=== PATIENT | male | born 1980 | race African-American/Black ===

== ENCOUNTER 2020-05-26 12:41 | Emergency (ER) | payer OTHER, SELFPAY ==
[2020-05-26 12:59] VITALS: BP 130/90; PULSE 49; RESP 18; TEMP 36.6; O2SAT 100; BMI 24.3
--- NOTE | 2020-05-26 13:04 | ECG_ITS ---
Test Reason : CHEST PAIN Blood Pressure : / mmHG Vent. Rate : 049 BPM Atrial Rate : 049 BPM P-R Int : 172 ms QRS Dur : 104 ms QT Int : 492 ms P-R-T Axes : 057 -48 -61 degrees QTc Int : 444 ms Sinus bradycardia Left axis deviation Septal infarct , age undetermined ST & T wave abnormality, consider inferolateral ischemia Abnormal ECG No previous ECGs available Referred By: Juanito Gil Electronically Signed By:REINALDO KHAN MD
--- NOTE | 2020-05-26 13:15 | ED.GENADULT ---
HPI - General Adult General Chief complaint: General Medical Stated complaint: CHEST PAIN Time Seen by Provider: 05/26/20 13:15 Source: patient Mode of arrival: ambulatory Limitations: no limitations History of Present Illness HPI narrative: patient has been feeling uncomfortable in his chest and he thought it was due to drinking. Patient describes diaphoresis. No history of alcohol withdrawal. The pain comes and goes. Neither parents have heart problems Onset (ago): minute(s) Location: chest Radiation: non-radiation Severity: severe Quality: crushing Pain Consistency: now resolved Relieving factors: none Associated symptoms: chest pain, diaphoresis and shortness of breath Related Data Allergies Allergy/AdvReac Type Severity Reaction Status Date / Time No Known Allergies Allergy Verified 05/26/20 12:58 Review of Systems Constitutional: Constitutional: Reports no additional constitutional complaints Eyes: Eyes: Reports no additional eye complaints ENT: Denies dizziness Cardiovascular: Cardiovascular: Reports no additional cardiovascular complaints Respiratory: Respiratory: Reports as per HPI Gastrointestinal: Gastrointestinal: Reports no additional gastrointestinal complaints Musculoskeletal: Musculoskeletal: Reports no additional musculoskeletal complaints Integumentary/Breasts: Skin/Breast: Denies rash Neurologic: Reports system reviewed and no additional complaints, except as documented, Denies dizziness and Denies Sensory deficit (Neuro) Psychiatric: Psychiatric: Denies anxiety PMFSH Past Medical History Medical History (Updated 05/26/20 @ 14:50 by Juanito Gil MD) Patient denies medical problems Social History Social History Alcohol intake: current Alcohol intake frequency: 3 or more drinks per day Smoking Status: Current every day smoker Smoked in Last 30 Days: Yes Use of substances other than those prescribed or required for medical reasons: No Advance Directives: No Advance Directives Information Provided: No Physical Exam Vital Signs: Vital Signs: Last Vital Signs Temp 97.9 F 05/26/20 12:59 Pulse 63 05/26/20 13:34 Resp 18 05/26/20 12:59 BP 127/88 05/26/20 13:34 Pulse Ox 100 05/26/20 12:59 Body Mass Index 24.3 Const: General: healthy appearing Nutritional Appearance: average body habitus Orientation/consciousness: oriented to person and patient oriented x3 Limitations: no limitations HENMT: Head: Yes normal to inspection Ears: external ears normal General nose exam: Normal external nose present Mouth: Normal oral and palatal mucosa present and oropharynx normal Throat: Yes posterior oropharynx normal Eyes: General: appearance normal, both eyes and all related structures Neck: Other: supple Neck: Yes normal visual inspection Chest: Chest palpation & inspection: normal inspection of the chest Resp: Auscultation: clear to auscultation bilaterally Cardio: Jugular venous distension: no JVD Rate: regular rate Rhythm: regular rhythm Heart sounds: S1 normal heart sound present and S2 normal heart sound present GI: Inspection: Yes normal to inspection Palpation (GI): Soft to palpation, nontender and No hepatosplenomegaly present Auscultation: normal bowel sounds : General: Yes no CVA tenderness Back/Spine/Pelvis: Back: no CVA tenderness Skin: General skin exam: no rashes or lesions noted Neuro: General: oriented to person and patient oriented x3 Cranial nerves: Yes CN's II-XII intact bilaterally Motor exam (neuro): 5/5 motor strength present throughout Sensory Exam: No Sensory deficit (Neuro) Extrem: General: Yes normal to inspection Psych: Appearance: grossly normal Course Course Course Narrative: Initial EKG was without pain. Now with pain and sinus with inferior st elevation II, III, AVF Medical Decision Making MDM Narrative Medical decision making narrative: now with STEMI, going to [facility] Lab Data Result diagrams: 05/26/20 13:24 05/26/20 13:24 Labs: Lab Results 05/26/20 05/26/20 05/26/20 Range/Units 13:24 13:24 13:24 WBC 6.9 (4.8-10.8) X10*3/uL RBC 5.02 (4.60-5.80) X10*6/uL Hgb 14.7 (14.0-18.0) g/dl Hct 45.6 (42-52) % MCV 90.8 (80-98) fL MCH 29.3 (27.0-33.0) pg MCHC 32.2 (31.0-36.0) g/dl RDW 14.2 (11.0-16.0) % Plt Count 236 (160-400) X10*3/uL MPV 10.3 (9.4-12.4) fL Immature Gran % (Auto) 0.6 H (0.0-0.4) % Neut % (Auto) 61.9 (45-73) % Lymph % (Auto) 21.2 (20-40) % Tompkins % (Auto) 14.1 H (2-11) % Eos % (Auto) 1.5 (0-4) % Baso % (Auto) 0.7 (0-2) % Lymph # (Auto) 1.5 (1.2-4.9) X10*3/uL Tompkins # (Auto) 1.0 (0.1-1.2) X10*3/uL Eos # (Auto) 0.1 (0.0-0.4) X10*3/uL Baso # (Auto) 0.1 (0.0-0.2) X10*3/uL Abs Immat Gran (auto) 0.04 H (0.00-0.03) X10*3/uL Absolute Neuts (auto) 4.3 (2.0-8.3) X10*3/uL Absolute Nucleated RBC 0.000 (0.0-0.012) X10*3/uL Nucleated RBC % (auto) 0.0 (0.0-0.2) /100WBC Smear Tech's Comments VERIFIED Hold Blue Top Sodium 138 (135-145) mmol/L Potassium 4.0 (3.3-5.1) mmol/L Chloride 103 (96-108) mmol/L Carbon Dioxide 23 (22-29) mmol/L Anion Gap 16 (12-20) BUN 13 (9-16) mg/dL Creatinine 1.05 (0.5-1.4) mg/dL Estim Creat Clear Calc 109.5 Estimated GFR > 60 Random Glucose 133 H (60-115) mg/dL Calcium 9.3 (8.4-10.2) mg/dL Troponin I High Sens 84.9 H (<3.5-35.0) ng/L 05/26/20 Range/Units 13:24 WBC (4.8-10.8) X10*3/uL RBC (4.60-5.80) X10*6/uL Hgb (14.0-18.0) g/dl Hct (42-52) % MCV (80-98) fL MCH (27.0-33.0) pg MCHC (31.0-36.0) g/dl RDW (11.0-16.0) % Plt Count (160-400) X10*3/uL MPV (9.4-12.4) fL Immature Gran % (Auto) (0.0-0.4) % Neut % (Auto) (45-73) % Lymph % (Auto) (20-40) % Tompkins % (Auto) (2-11) % Eos % (Auto) (0-4) % Baso % (Auto) (0-2) % Lymph # (Auto) (1.2-4.9) X10*3/uL Tompkins # (Auto) (0.1-1.2) X10*3/uL Eos # (Auto) (0.0-0.4) X10*3/uL Baso # (Auto) (0.0-0.2) X10*3/uL Abs Immat Gran (auto) (0.00-0.03) X10*3/uL Absolute Neuts (auto) (2.0-8.3) X10*3/uL Absolute Nucleated RBC (0.0-0.012) X10*3/uL Nucleated RBC % (auto) (0.0-0.2) /100WBC Smear Tech's Comments Hold Blue Top SEE NOTE Sodium (135-145) mmol/L Potassium (3.3-5.1) mmol/L Chloride (96-108) mmol/L Carbon Dioxide (22-29) mmol/L Anion Gap (12-20) BUN (9-16) mg/dL Creatinine (0.5-1.4) mg/dL Estim Creat Clear Calc Estimated GFR Random Glucose (60-115) mg/dL Calcium (8.4-10.2) mg/dL Troponin I High Sens (<3.5-35.0) ng/L ECG Data Attestation: I personally reviewed and interpreted this ECG as follows: Interpretation: initial EKG sinus rate 50 with flippe ts II, III and AVF Critical Care Time Critical Care Time Attestation: I spent 40 minutes of critical care, with interventions, assessments, speaking to patient, consultants, and family. 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
--- NOTE | 2020-05-26 13:20 | ECG_ITS ---
Test Reason : CP Blood Pressure : / mmHG Vent. Rate : 053 BPM Atrial Rate : 053 BPM P-R Int : 172 ms QRS Dur : 104 ms QT Int : 432 ms P-R-T Axes : 054 018 099 degrees QTc Int : 405 ms Sinus bradycardia Septal infarct , age undetermined Inferior injury pattern ACUTE AK / STEMI Consider right ventricular involvement in acute inferior infarct Abnormal ECG No previous ECGs available Referred By: Juanito Gil Electronically Signed By:REINALDO KHAN MD
[2020-05-26] MEDS: Aspirin Enteric Coated 81 MG TABLET.DR 162 MG PO (13:33)
[2020-05-26 13:34] VITALS: BP 127/88; PULSE 63
[2020-05-26] MEDS: Nitroglycerin 2 % Oint 1 GM Packet 1 INCH TRANSDERMA (13:34)
[2020-05-26 13:41] LABS: Basophils Absolute Auto 0.1 X10*3/uL (0.0-0.2); Basophils Percent Auto 0.7 % (0-2); Hemoglobin 14.7 g/dl (14.0-18.0); MANUAL DIFF FLAG SCAN; Mean Corpuscular Hemoglobin 29.3 pg (27.0-33.0); PLT CLUMP 1; Red Blood Count 5.02 X10*6/uL (4.60-5.80); SCAN SMEAR FLAG 1
[2020-05-26 13:43] LABS: Eosinophils Absolute Auto 0.1 X10*3/uL (0.0-0.4); Eosinophils Percent Auto 1.5 % (0-4); Hematocrit 45.6 % (42-52); Imm Gran Abs Auto 0.04 X10*3/uL (0.00-0.03); Imm Gran Pct Auto 0.6 % (0.0-0.4); Lymphocytes Absolute Auto 1.5 X10*3/uL (1.2-4.9); Lymphocytes Percent Auto 21.2 % (20-40); Mean Corpuscular HGB Conc 32.2 g/dl (31.0-36.0); Mean Corpuscular Volume 90.8 fL (80-98); Mean Platelet Volume 10.3 fL (9.4-12.4); Monocytes Percent Auto 14.1 % (2-11); Neutrophils Absolute Auto 4.3 X10*3/uL (2.0-8.3); Neutrophils Percent Auto 61.9 % (45-73); Platelet Count 236 X10*3/uL (160-400); Red Cell Distribution Width 14.2 % (11.0-16.0); White Blood Count 6.9 X10*3/uL (4.8-10.8)
[2020-05-26 14:13] LABS: SLIDE REVIEW VERIFIED
[2020-05-26 14:21] LABS: Anion Gap 16 (12-20); Blood Urea Nitrogen 13 mg/dL (9-16); Calcium 9.3 mg/dL (8.4-10.2); Carbon Dioxide 23 mmol/L (22-29); Chloride 103 mmol/L (96-108); Creatinine Clr Calc Pharmacy 109.5; Estimated Glomerular Filt Rate > 60; Glucose Random 133 mg/dL (60-115); Sodium 138 mmol/L (135-145)
[2020-05-26 14:33] LABS: Troponin-I High Sensitivity 84.9 ng/L (<3.5-35.0)
[2020-05-26 14:35] VITALS: BP 135/103; PULSE 60; RESP 18; O2SAT 98
--- NOTE | 2020-05-26 14:38 | PC.NURSE ---
@[id number] DR IBARRA REQUESTS A CALL TO [facility] AND STEMI STAND BY WITH [facility] STAT PAGER [phone] HATCH @ [phone], DR IBARRA TAKES OVER CALL RIGHT AWAY JAMIR FROM [facility] @ 1514 [facility] ALS CREW HERE WELL
[2020-05-26] MEDS: Ticagrelor 90 MG TABLET 180 MG PO (14:40)
[2020-05-26] MEDS: Heparin Sodium,Porcine 5,000 UNIT/ML VIAL 5000 UNIT IVPUSH (14:41)
--- NOTE | 2020-05-26 14:47 | PC.NURSE ---
pt reported chest pain, ekg completed noting a STEMI, md to bedside. pt medicated per md order and additional iv placed. ems arrived to bring pt to [facility].
--- NOTE | 2020-05-26 14:50 | PC.NURSE ---
report given to jeremiah at [facility], [place]
--- NOTE | 2020-05-26 15:11 | PC.NURSE ---
report given to [facility] processing labourer and [facility]cc at [facility]
== END 2020-05-26 14:50 | disposition short-term general hospital (02) ==
PROVIDERS: Emergency Provider Emergency Medicine; PCP Internal Medicine
DX: I21.11 ST elevation (STEMI) myocardial infarction involving right coronary artery (principal); F17.200 Nicotine dependence, unspecified, uncomplicated; Z71.6 Tobacco abuse counseling; Z79.899 Other long term (current) drug therapy
CPT/HCPCS: 36415; 80048; 84484; 85025; 93005; 96374; 99285; 99291

== ENCOUNTER → 2020-07-02 10:50 | Outpatient (BNVA) | payer OTHER, SELFPAY | PROVIDERS: PCP Internal Medicine; Visit Provider Internal Medicine | DX: I21.19 ST elevation (STEMI) myocardial infarction involving other coronary artery of inferior wall (principal); I25.10 Atherosclerotic heart disease of native coronary artery without angina pectoris; E78.5 Hyperlipidemia, unspecified; F17.200 Nicotine dependence, unspecified, uncomplicated; F10.10 Alcohol abuse, uncomplicated | CPT/HCPCS: 93005 ==

== ENCOUNTER → 2020-07-14 07:46 | Outpatient (REF) | payer OTHER, SELFPAY ==
--- NOTE | ~2020-07-14 | NM_ITS ---
Exercise Myocardial perfusion study Indication: Prior STEMI evaluate for myocardial ischemia Technique: The patient was brought in for an exercise perfusion study on 07/14/2020. Patient performed exercise as per Favio protocol and was injected 30 mCi of sestamibi was given intravenously one target HR was achieved. Images were obtained using the SPECT gamma camera interlaced with the gating device. Images were obtained in supine position. Resting perfusion study was performed on 07/15/2020. Patient was administered 30 mCi of sestamibi intravenously at rest. Images were then obtained in supine position. Images obtained with and without CT attenuation. Total DLP 41 mGy-cm. Images were processed with the software and compared side to side in short axis, horizontal long axis and vertical long axis views. Findings: The stress perfusion study showed nontender images show mildly reduced uptake in the inferior wall of the LV myocardium. Attenuation corrected images show mildly reduced uptake in the distal anterior and moderately reduced uptake in the apex of the LV myocardium.. The gated study shows normal LV systolic function with calculated LVEF of 53%. LV cavity is normal in in size. The gated study shows normal systolic wall thickening and contraction of all segments. There is no transient ischemic dilation. Resting study shows no change in perfusion pattern compared to stress perfusion study. Gating at rest reveals normal cyst colic wall motion with ejection fraction at 52%. The findings are consistent with no reversible defect suggestive of ischemia.. NM/NM lorie perf SPECT rest & str Impression: 1. Likely normal myocardial perfusion 2. Gated LVEF is 53% 3. Transient ischemic dilatation not present Stress EKG is equivocal for ischemia
--- NOTE | 2020-07-14 08:00 | CA_ITS ---
Acquisition Time: 2020-07-14 08:10:07 Total Exercise Time: 00:09:30 Test Indications: Chest Pain Medications: ASA ATORVASTATIN LISINOPRIL METOPROLOL TICAGRELOR Protocol: CALLIE Max HR: 160 BPM 89% of Pred: 178 BPM Max BP: 156/070 mmHG Max Work Load: 10.9 METS Exercise stress test using Callie protocol, total of 9 min 30 sec. METS 10.90, TAPHR up to 93 %. Pt tolerated well, denies any anginal sx., EKG with isolated PAC's mild upsloping ST depressions seen inferiorly and anteriorly. Nuclear images to follow. Normotensive response to exercise. Test reviewed with Dr. Nicholson. Referred By: Man Joy Overread By: Lexus Easley NP
== END ==
LOC: HO.CARD 07:46
PROVIDERS: Visit Provider Internal Medicine
DX: I21.19 ST elevation (STEMI) myocardial infarction involving other coronary artery of inferior wall (principal)
CPT/HCPCS: 78452; 93016; 93017; 93018; A9500

== ENCOUNTER → 2020-07-21 07:21 | Outpatient (REF) | payer OTHER, SELFPAY ==
--- NOTE | 2020-07-21 07:34 | CA_ITS ---
Transthoracic Echocardiogram Patient (Last, First, Middle): Marina Gibson, Gender: Male Date of : 1980 Age: 40 Procedure Date: 07/21/2020 Procedure Type: Transthoracic Echocardiogram Location: OP Height: 190.5 cm Weight: 90.72 kg BSA: 2.19 m2 Heart Rate: bpm BP: 102 / 64 mmHg Manager Fine: Joe MD: Man Joy MD Symptoms: I21.19 - ST elevation (STEMI) myocardial infarction invol... Study Quality: Good ECG Rhythm: Sinus Conclusions: - The left ventricular systolic function is low normal. The visually estimated ejection fraction is between 50-55%. - There is mild mitral valve regurgitation. Findings Left Ventricle Normal left ventricular cavity size. There is normal left ventricular wall thickness. The left ventricular systolic function is low normal. The visually estimated ejection fraction is between 50-55%. There is no evidence of regional wall motion abnormalities. Diastolic function is normal for age. Right Ventricle Normal right ventricular cavity size and systolic function. Atria The left atrium is normal in size. The right atrium is normal in size. Aortic Valve There is a normal trileaflet aortic valve. There is no aortic valve stenosis. There is no aortic valve regurgitation. Mitral Valve The mitral valve appears normal. There is mild mitral valve regurgitation. There is no mitral valve stenosis. Pulmonic Valve The pulmonic valve was not well visualized. There is trace pulmonic valve regurgitation. Tricuspid Valve Normal tricuspid valve structure. There is trace tricuspid valve regurgitation. The pulmonary artery systolic pressure is normal. Great Vessels The asc aorta is normal in size. Venous The inferior vena cava is normal in size and collapses greater than 50% with inspiration. Pericardium/Pleural There is no evidence of pericardial effusion. Prior Study Comparison No prior study available for comparison. Measurements 2D Linear Measurements RVIDd: 3.20 RVIDd Index: 1.46 IVSd: 1.03 0.6-0.9/0.6-1.0 cm LVIDd: 5.62 3.9-5.3/4.2-5.9 cm LVIDd Index: 2.57 2.4-3.2/2.2-3.1 cm/m2 LVIDs: 4.13 2.0-3.6 cm LVPWd: 0.99 0.7-1.1 cm Ao Root: 3.00 2.1-3.5 cm LA Diam: 3.80 2.7-3.8/3.0-4.0 cm LAIDs Index: 1.74 1.5-2.3 cm/m2 LV Mass: 279.91 67-162/88-224 g LV Mass Index: 127.81 43-95/49-115 g/m2 LVOT Diam: 2.50 3.0+(-)1.3 cm 2D Systolic Function EF 4C: 50.20 >55% EF 2C: 67.30 >55% EF BiP: 59.20 >55% Mitral Valve MV Pk E: 0.62 MV PK A: 0.59 MV Decel Time: 185.00 E/A: 1.00 E'Lateral: 11.50 E'Medial: 9.86 E/E' Med: 6.20 E/E' Lat: 5.40 MR Vol - PW Dopp: 8.35 MR VTI: 1.67 MR ERO: 5.00 MR Alias Gael: 0.23 MR RAD: 0.40 Aortic Valve AoV Pk Gael: 1.52 AoV Mn Gael: 1.14 AoV VTI: 0.34 AoV Pk Grad: 9.00 Aov Mn Grad: 6.00 JESSICA Cont.VTI: 2.90 LVOT LVOT Pk Gael: 0.92 LVOT Mn Gael: 0.62 LVOT VTI: 0.20 LVOT Pk Grad: 3.00 LVOT Mn Grad: 2.00 LVOT Diam: 2.50 LVOT Area: 4.91 Diastolic Function MV Pk E: 0.62 MV Pk A: 0.59 E/A: 1.00 E'Medial: 9.86 E/E' Med: 6.20 E' Laterial: 11.50 E/E' Lat: 5.40 Tricuspid Valve TR Pk Gael: 2.39 TR Pk Grad: 23.00 RA Press: 3.00 RVSP: 26.00 Great Vessels Aorta Ao Root-2D: 3.00 2.0-3.7 cm Ao Asc: 3.50 2.1-3.4 cm Ao Arch: 3.30 Updated in Other Vendor System with Status of Final Man Joy MD electronically signed on 07/22/2020 12:28:34 PM with status of Final
[2020-07-21 09:05] LABS: Alanine Aminotransferase 101 U/L (0-40); Albumin Level 4.4 g/dL (3.5-5.0); Alkaline Phosphatase 113 U/L (39-117); Aspartate Amino Transferase 56 U/L (5-37); Bilirubin Direct 0.4 mg/dL (0.0-0.5); Bilirubin Total 1.1 mg/dL (0.0-1.0); Cholesterol 160 mg/dL; HDL Cholesterol 36 mg/dL; LDL Cholesterol Calculated 106 mg/dl; Total Protein 7.4 g/dL (6.5-8.0); Triglycerides 93 mg/dL
== END ==
LOC: HO.CARD 07:21
PROVIDERS: PCP Internal Medicine; Visit Provider Internal Medicine
DX: I21.19 ST elevation (STEMI) myocardial infarction involving other coronary artery of inferior wall (principal)
CPT/HCPCS: 36415; 80061; 80076; 93306

== ENCOUNTER → 2020-07-28 08:18 | Outpatient (BNVA) | payer OTHER, SELFPAY | PROVIDERS: PCP Internal Medicine; Visit Provider Internal Medicine ==

== ENCOUNTER 2020-10-28 11:52 | Outpatient (REF) | payer OTHER, SELFPAY ==
[2020-10-28 13:54] LABS: Alanine Aminotransferase 54 U/L (0-40); Albumin Level 4.6 g/dL (3.5-5.0); Alkaline Phosphatase 123 U/L (39-117); Aspartate Amino Transferase 29 U/L (5-37); Bilirubin Direct 0.4 mg/dL (0.0-0.5); Total Protein 7.6 g/dL (6.5-8.0)
== END 2020-10-28 11:53 | disposition home or self-care (01) ==
LOC: HO.LAB 11:52
PROVIDERS: PCP Internal Medicine; Visit Provider Internal Medicine
DX: R94.5 Abnormal results of liver function studies (principal)
CPT/HCPCS: 36415; 80076

== ENCOUNTER 2021-06-02 14:52 | Outpatient (REF) | payer OTHER, SELFPAY ==
--- NOTE | ~2021-06-02 | XR_ITS ---
EXAMINATION: XR ANKLE, LEFT CLINICAL INFORMATION: Pain COMPARISON: None TECHNIQUE: AP, lateral, and mortise views of the left ankle. FINDINGS: Bone alignment is normal. No acute fracture or dislocation is seen. There is a small well-corticated soft tissue ossification adjacent to the anterior talus, question representing old trauma. There is proliferative bone reaction adjacent to the distal tibial and fibular shaft likely representing old trauma to the interosseous membrane. There is arthritis at the tibiotalar joint with small osteophytes. No ankle joint effusion is seen. XR/XR ankle LT min 3V IMPRESSION: No acute fracture or dislocation. Question old trauma. Mild arthritis at the tibiotalar joint.
== END 2021-06-02 14:53 | disposition home or self-care (01) ==
LOC: HO.HMGCX 14:52
PROVIDERS: PCP Internal Medicine; Visit Provider Physician Assistant
DX: M25.572 Pain in left ankle and joints of left foot (principal)
CPT/HCPCS: 73610

== ENCOUNTER → 2021-08-04 10:31 | Outpatient (BNVA) | payer OTHER, SELFPAY | PROVIDERS: PCP Internal Medicine; Visit Provider Physician Assistant | DX: M19.072 Primary osteoarthritis, left ankle and foot (principal) ==

== ENCOUNTER 2021-08-27 15:40 | Outpatient (REF) | payer OTHER, SELFPAY ==
--- NOTE | ~2021-08-27 | MR_ITS ---
EXAMINATION: MR ANKLE WITHOUT CONTRAST, LEFT CLINICAL INFORMATION: Left ankle pain and swelling. Anterior pain and swelling. COMPARISON: Left ankle radiographs dated 06/02/2021. TECHNIQUE: Multisequence MR imaging of the left ankle was obtained without contrast on a high-field strength scanner. FINDINGS: BONE AND ARTICULAR CARTILAGE: Osteochondral lesion at the lateral aspect of the talar dome measuring 1.4 x 0.7 cm (AP x ML) with a depth of 0.5 cm. Full-thickness overlying articular cartilage loss with underlying subchondral cystic change and marrow edema. Articular cartilage loss with full-thickness fissuring at the anterior and posterior aspect of the tibial plafond where there is mild subchondral cystic change. Small marginal osteophytes. Small marginal osteophytes at the talonavicular joint. Corticated ossification along the dorsal aspect of the talus without associated marrow edema which may represent an unfused osteophyte versus remote fracture fragment. ACHILLES TENDON: Mild distal Achilles tendinosis. OTHER TENDONS: Fluid within the flexor digitorum, flexor hallucis longus, peroneal longus, and peroneal brevis tendon sheaths, consistent with tenosynovitis. No transverse tendon tear or tendon retraction. LIGAMENTS: Thickening and increased T2 signal throughout the anterior talofibular, posterior talofibular, calcaneofibular, and deltoid ligaments, consistent with moderate sprains/partial tears. Small corticated ossifications adjacent to the medial malleolus likely representing remote avulsion injuries. JOINT FLUID AND SOFT TISSUES: [id number] tibiotalar joint effusion with synovitis. Posterior loose body measuring 0.5 cm. PLANTAR FASCIA: Mild thickening and abnormal signal of the proximal plantar fascia consistent with mild plantar fasciitis. No measurable tear. SINUS TARSI AND TARSAL TUNNEL: Normal. MR/MR ankle LT wo con IMPRESSION: 1. Lateral talar osteochondral lesion measuring 1.4 x 0.7 cm with overlying articular cartilage loss and underlying subchondral cystic change. No evidence of fragmentation or instability. Overall mild tibiotalar osteoarthritis. [id number] joint effusion with synovitis and a posterior loose body measuring 0.5 cm. 2. Mild distal Achilles tendinosis. 3. Flexor digitorum longus, flexor hallucis longus, peroneal longus, and peroneal brevis tenosynovitis without a transverse tendon tear or tendon retraction. 4. Moderate sprains/partial tears of the anterior talofibular, posterior talofibular, calcaneofibular, and deltoid ligaments. 5. Mild proximal plantar fasciitis. No measurable tear.
== END 2021-08-27 15:41 | disposition home or self-care (01) ==
LOC: HO.MRI 15:40
PROVIDERS: Visit Provider Physician Assistant
DX: M19.072 Primary osteoarthritis, left ankle and foot (principal); S93.402A Sprain of unspecified ligament of left ankle, initial encounter; X58.XXXA Exposure to other specified factors, initial encounter; Y93.9 Activity, unspecified; Y92.9 Unspecified place or not applicable; Y99.8 Other external cause status
CPT/HCPCS: 73721

== ENCOUNTER → 2021-12-09 10:19 | Outpatient (BNVA) | payer OTHER, SELFPAY | PROVIDERS: PCP Internal Medicine; Visit Provider Internal Medicine | DX: Z01.810 Encounter for preprocedural cardiovascular examination (principal); I25.10 Atherosclerotic heart disease of native coronary artery without angina pectoris; E78.5 Hyperlipidemia, unspecified; F10.10 Alcohol abuse, uncomplicated; R94.5 Abnormal results of liver function studies; F17.200 Nicotine dependence, unspecified, uncomplicated | CPT/HCPCS: 93005 ==

== ENCOUNTER 2022-03-10 11:37 | Outpatient (REF) | payer SELFPAY ==
[2022-03-10 14:28] LABS: Alanine Aminotransferase 41 U/L (0-40); Albumin Level 4.7 g/dL (3.5-5.0); Alkaline Phosphatase 83 U/L (39-117); Aspartate Amino Transferase 30 U/L (5-37); Bilirubin Direct 0.3 mg/dL (0.0-0.5); Bilirubin Total 0.8 mg/dL (0.0-1.0); Cholesterol 223 mg/dL; HDL Cholesterol 51 mg/dL; LDL Cholesterol Calculated 145 mg/dl; Total Protein 7.6 g/dL (6.5-8.0); Triglycerides 138 mg/dL
[2022-03-11 07:14] LABS: HBS Num1 0.53 mIU/mL (0-7.99); ~Hepatitis B Surface Antibody NONREACTIVE (Nonreactive)
[2022-03-12 08:38] LABS: TS Negative Control Passed; TS Panel A 1; TS Panel B 0; TS Positive Control Passed; TSpotTB Negative (Negative)
[2022-03-15 14:14] LABS: Rubella IgG Antibody 1.94 Index
== END 2022-03-10 11:38 | disposition home or self-care (01) ==
LOC: HO.HMGCLDS 11:37
PROVIDERS: Internal Medicine; PCP Internal Medicine; Visit Provider Emergency Medicine
DX: Z01.84 Encounter for antibody response examination (principal); I25.10 Atherosclerotic heart disease of native coronary artery without angina pectoris; E78.5 Hyperlipidemia, unspecified
CPT/HCPCS: 36415; 80061; 80076; 86481; 86706; 86735; 86762; 86765; 86787

== ENCOUNTER 2022-04-21 08:57 | Outpatient (REF) | payer SELFPAY ==
[2022-04-21 12:02] LABS: Troponin-I High Sensitivity < 3.5 ng/L (<3.5-35.0)
[2022-04-21 14:24] LABS: CT PCR NOT DETECTED (Not Detect.); NG PCR NOT DETECTED (Not Detect.)
[2022-04-22 07:22] LABS: HIV AB/AG Nonreactive (Nonreactive); HIV Num 1 0.07 S/CO (0.00-0.99); ~HepC Num1 0.11 S/CO (0.00-0.79); ~Hepatitis B Surface Antibody NONREACTIVE (Nonreactive); ~Hepatitis C Antibody Nonreactive (Nonreactive)
[2022-04-23 01:24] LABS: Herpes Simplex Type 1 IgG <0.90 index
== END 2022-04-21 08:58 | disposition home or self-care (01) ==
LOC: HO.HMGCLDS 08:57
PROVIDERS: PCP Internal Medicine; Visit Provider Internal Medicine
DX: R21 Rash and other nonspecific skin eruption (principal); Z20.2 Contact with and (suspected) exposure to infections with a predominantly sexual mode of transmission
CPT/HCPCS: 0353U; 36415; 84484; 86695; 86696; 86706; 86803; 87389

== ENCOUNTER 2022-12-07 08:43 | Outpatient (AMB) | payer OTHER, SELFPAY ==
[2022-12-07 08:46] VITALS: BP 110/78; PULSE 54; O2SAT 99
--- NOTE | 2022-12-07 08:46 | A.OFFPC_ITS ---
Vital Signs 12/07/22 08:46 Weight 202 lb 4 oz BP 110/78 Blood Pressure Location Rt brachial Position Sitting Pulse 54 Pulse Source Pulse Oximeter Pulse Oximetry (%) 99 Oxygen Delivery Method Room Air Intake Visit Reasons: Discuss Referral to remove a Cyst Allergies No Known Allergies Allergy (Verified 12/07/22 08:47) Medication List - Last Reconciled 12/07/22 by Ben Simon MD atorvastatin 80 mg PO BEDTIME folic acid 1 mg PO DAILY 90 days lisinopril 5 mg PO DAILY 90 days metoprolol succinate ER 25 mg PO DAILY multivitamin (Daily Multi-Vitamin tablet) 1 tab PO DAILY 90 days nitroglycerin 0.4 mg sublingual Q5M PRN 30 days valacyclovir 1,000 mg PO BID PRN 7 days Tobacco use date assessed: 12/07/22 Dental Screening Dental Screen Date: 12/07/22 Did you have a dental visit in the last 12 months?: Yes Did you have a dental problem in the last 6 months where you did not have access to dental care?: No Was dental information given to patient?: Patient has dentist HPI Discuss Referral to remove a Cyst HPI Details Patient is a 42-year-old gentleman came in today to be evaluated for skin cyst Patient wanted to a referral for them to be removed. On examination it seems as if he is getting recurrent boils. Mostly on his face chain area where he is shaving And currently have 1 active healing while on his abdomen right side close to umbilicus. Upon further question questions, patient told me that he is also shaving his body. I would recommend for him to stop shaving that is causing irritation to his skin and most likely putting him at risk of recurrent boils I have sent doxycycline 100 mg capsules patient may take that as soon as he start getting the boil for 7 days. And see the rest for next recurrence. He should also have labs done today. Patient have a history of coronary artery disease, and should be following up with the asbestos abatement technician. He is on high-dose statin as well. No chest pains no shortness of breath Patient she should return in 6 months for physical exam [facility] Medical History Immunity status testing Excessive drinking alcohol Smoking Other and unspecified hyperlipidemia (~03/2020) Atherosclerotic cardiovascular disease ST elevation myocardial infarction (STEMI) of inferior wall Patient denies medical problems Surgical History History of removal of cyst History of heart artery stent (~05/2020) Family History Father Heart disease Mother Cancer Other Substance use disorder Social History Housing: Apartment Alcohol intake: current Alcohol intake frequency: a few times a month Alcohol type: beer Patient Tobacco Use Status: Current everyday Tobacco user Tobacco use type: Cigarette e-Cigarette/Vaping Use: Never Used Substance Use Type: Marijuana Current occupational status: employed 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 1. Little interest or pleasure in doing things: not at all 2. Feeling down, depressed, or hopeless: not at all 3. Trouble falling or staying asleep, or sleeping too much: not at all 4. Feeling tired or having little energy: not at all 5. Poor appetite or overeating: not at all 6. Feeling bad about yourself - or that you are a failure or have let yourself or your family down: not at all 7. Trouble concentrating on things, such as reading the newspaper or watching television: not at all 8. Moving or speaking so slowly that other people could have noticed. Or the opposite - being so fidgety or restless that you have been moving around a lot more than usual: not at all 9. Thoughts that you would be better off or of hurting yourself in some way: not at all Total score: 0 Depression Screening Interpretation: Negative 83220 - PHQ-9 Billing: Yes Source: Developed by Drs. Valentino Holcomb, Sharon Hurley, Evan Koenig and colleagues, with an educational olayinka from [employer]. Thrive Questionnaire Date Thrive assessed: 12/07/22 I am a: Patient What is your living situation today?: I have a steady place to live Within the past 12 months, did the food you bought not last and you didn't have the money to get more?: Never true Within the past 12 months, did you worry whether your food would run out before you got money to buy more?: Never true Do you have trouble paying for medicines?: No Do you have trouble getting transportation to medical appointments?: No Do you have trouble paying your heating and electricity bill?: No Do you have trouble taking care of your child, family member or friend?: No Do you have trouble with day-to-day activities such as bathing, preparing meals, shopping, managing finances, etc.?: No Are you currently unemployed and looking for a job?: No Are you interested in more education?: No AUDIT C Alcohol Use Questionnaire (AUDIT-C) 1. How often do you have a drink containing alcohol?: 2-3 times a week 2. How many drinks containing alcohol do you have on a typical day when you are drinking?: 1 or 2 3. How often do you have six or more drinks on one occasion?: Never Total Score: 3 Score Reviewed/Action Taken: Yes ANAID-7 AMB Questionnaire ANAID-7 Date ANAID - 7 assessed: 12/07/22 Feeling nervous, anxious, or on edge: 0 = Not at all Not being able to stop or control worryin = Not at all Worrying too much about different things: 0 = Not at all Trouble relaxin = Not at all Being so restless that it is hard to sit still: 0 = Not at all Becoming easily annoyed or irritable: 0 = Not at all Feeling afraid as if something awful might happen: 0 = Not at all Total ANAID-7 score (0-4 normal; 5-9 mild; 10-14 moderate; 15-21 severe): 0 Source: Developed by Drs. Valentino Holcomb, Sharon Hurley, Evan Koenig and colleagues, with an educational olayinka from [employer]. ANAID-7 Assessment Billing ANAID-7 Assessment Tool: ANAID-7 Assessment 28102 Review of Systems Const Denies chills and Denies fever(s) ENT Denies epistaxis and Denies nasal discharge Card Denies chest pain Resp Denies chest congestion, Denies cough and Denies hemoptysis GI Denies diarrhea and Denies nausea Skin/Breast Denies rash Neuro Reports no additional complaints Psych Reports no additional complaints Endo Reports no additional complaints Physical exam (Primary Care) Vital Signs: Last Vital Signs Pulse 54 12/07/22 08:46 BP 110/78 12/07/22 08:46 Pulse Ox 99 12/07/22 08:46 Oxygen Delivery Method Room Air 12/07/22 08:46 Tobacco/Smoking Status: Tobacco use Status Tobacco use date assessed 12/07/22 12/07/22 08:48 Patient Tobacco Use Status Current everyday Tobacco 12/07/22 08:48 Tobacco use type Cigarette 12/07/22 08:48 e-Cigarette/Vaping Use Never Used 12/07/22 08:48 PHQ-9: PHQ-9 Score PHQ-9: Total score 0 12/07/22 09:53 Depression Screening Interpretation: Negative Thrive Assessment: Date of Thrive Assessment Date Thrive assessed 12/07/22 12/07/22 08:59 Const General: cooperative, comfortable and no acute distress Orientation/consciousness: patient oriented x3 HENMT Head: Yes normocephalic Eyes General: appearance normal, both eyes and all related structures Neck Neck: Yes supple Resp Effort & Inspection: normal respiratory effort, no cough and no stridor Cardio Rhythm: regular rhythm Heart sounds: S1 normal heart sound present and S2 normal heart sound present Skin Other: Excessive scarring right side of chain due to recurrent boils, 1 healing while right side of abdomen close to me like us no drainage General skin exam: turgor normal Neuro General: patient oriented x3, tone normal and moves all extremities Extrem Right lower extremity: no edema Left lower extremity: no edema Assessment and Plan Assessment & Plan (1) Recurrent boils: Code(s): L02.93 - Carbuncle, unspecified (2) Atherosclerotic cardiovascular disease: Code(s): I25.10 - Atherosclerotic heart disease of [place] coronary artery without angina pectoris (3) Lipid disorder: Code(s): E78.9 - Disorder of lipoprotein metabolism, unspecified Plan Patient is a 42-year-old gentleman came in today to be evaluated for skin cyst Patient wanted to a referral for them to be removed. On examination it seems as if he is getting recurrent boils. Mostly on his face chain area where he is shaving And currently have 1 active healing while on his abdomen right side close to umbilicus. Upon further question questions, patient told me that he is also shaving his body. I would recommend for him to stop shaving that is causing irritation to his skin and most likely putting him at risk of recurrent boils I have sent doxycycline 100 mg capsules patient may take that as soon as he start getting the boil for 7 days. And see the rest for next recurrence. He should also have labs done today. Patient have a history of coronary artery disease, and should be following up with the asbestos abatement technician. He is on high-dose statin as well. No chest pains no shortness of breath Patient she should return in 6 months for physical exam Orders: Orders Comprehensive Met. Panel Today E78.9 - Disorder of lipoprotein metabolism, unspecified, I25.10 - Atherosclerotic heart disease of [place] coronary artery without angina pectoris, L02.93 - Carbuncle, unspecified LDL Cholesterol Direct Today E78.9 - Disorder of lipoprotein metabolism, unspecified, I25.10 - Atherosclerotic heart disease of [place] coronary artery without angina pectoris, L02.93 - Carbuncle, unspecified Complete Blood Count Auto Diff Today E78.9 - Disorder of lipoprotein metabolism, unspecified, I25.10 - Atherosclerotic heart disease of [place] coronary artery without angina pectoris, L02.93 - Carbuncle, unspecified TSH reflex Free T4 Today E78.9 - Disorder of lipoprotein metabolism, unspecified, I25.10 - Atherosclerotic heart disease of [place] coronary artery without angina pectoris, L02.93 - Carbuncle, unspecified Medications: New doxycycline hyclate 100 mg PO BID 30 tabs 0RF Coding Level of Care Code Est Pt Level 4 (95918) Diagnoses Recurrent boils L02.93 Atherosclerotic cardiovascular disease I25.10 Lipid disorder E78.9 Additional Codes ANAID-7 Assessment Billing - ANAID-7 Assessment Tool: ANAID-7 Assessment 87447 ([id number]) Time Spent (min) 30 Comment 5 prep, 15 with patient, 10 coordination of care/labs
== END 2022-12-07 09:03 | disposition home or self-care (01) ==
PROVIDERS: PCP Internal Medicine; Visit Provider Internal Medicine
DX: L02.93 Carbuncle, unspecified (principal); I25.10 Atherosclerotic heart disease of native coronary artery without angina pectoris; E78.9 Disorder of lipoprotein metabolism, unspecified; F17.210 Nicotine dependence, cigarettes, uncomplicated; Z95.5 Presence of coronary angioplasty implant and graft
CPT/HCPCS: 99214

== ENCOUNTER 2022-12-07 09:01 | Outpatient (REF) | payer OTHER, SELFPAY ==
[2022-12-07 11:07] LABS: MANUAL DIFF FLAG NO
[2022-12-07 11:34] LABS: Basophils Percent Auto 0.6 % (0-2); Eosinophils Absolute Auto 0.2 X10*3/uL (0.0-0.4); Eosinophils Percent Auto 3.2 % (0-4); Hematocrit 42.2 % (42.0-52.0); Hemoglobin 13.2 g/dl (14.0-18.0); Imm Gran Abs Auto 0.02 X10*3/uL (0.00-0.03); Imm Gran Pct Auto 0.4 % (0.0-0.4); Lymphocytes Absolute Auto 1.5 X10*3/uL (1.2-4.9); Lymphocytes Percent Auto 32.5 % (20-40); Mean Corpuscular HGB Conc 31.3 g/dl (31.0-36.0); Mean Corpuscular Hemoglobin 28.4 pg (27.0-33.0); Mean Corpuscular Volume 90.9 fL (80.0-98.0); Mean Platelet Volume 11.1 fL (9.4-12.4); Monocytes Absolute Auto 0.6 X10*3/uL (0.1-1.2); Monocytes Percent Auto 12.7 % (2-11); Neutrophils Absolute Auto 2.4 x10*3/uL (2.0-8.3); Neutrophils Percent Auto 50.6 % (45-73); Platelet Count 199 X10*3/uL (160-400); Red Blood Count 4.64 X10*6/uL (4.60-5.80); Red Cell Distribution Width 14.6 % (11.0-16.0); White Blood Count 4.7 X10*3/uL (4.8-10.8)
[2022-12-07 12:18] LABS: Alanine Aminotransferase 29 U/L (0-40); Albumin Level 4.7 g/dL (3.5-5.0); Alkaline Phosphatase 96 U/L (39-117); Anion Gap 12 (12-20); Aspartate Amino Transferase 31 U/L (5-37); Bilirubin Total 1.5 mg/dL (0.0-1.0); Blood Urea Nitrogen 10 mg/dL (9-16); Calcium 9.5 mg/dL (8.4-10.2); Carbon Dioxide 28 mmol/L (22-29); Chloride 103 mmol/L (96-108); Estimated Glomerular Filt Rate > 60; Glucose Random 135 mg/dL (60-115); Potassium 3.1 mmol/L (3.3-5.1); Sodium 140 mmol/L (135-145); Total Protein 7.9 g/dL (6.5-8.0)
[2022-12-07 12:19] LABS: TSH reflex Free T4 1.11 uIU/mL (0.32-4.0)
[2022-12-08 16:19] LABS: LDL Cholesterol Direct 81 mg/dL (<100)
== END 2022-12-07 09:02 | disposition home or self-care (01) ==
LOC: HO.HMGCLDS 09:01
PROVIDERS: PCP Internal Medicine; Visit Provider Internal Medicine
DX: L02.93 Carbuncle, unspecified (principal); I25.10 Atherosclerotic heart disease of native coronary artery without angina pectoris; E78.9 Disorder of lipoprotein metabolism, unspecified
CPT/HCPCS: 36415; 80053; 83721; 84443; 85025

== ENCOUNTER 2022-12-08 10:08 | Outpatient (AMB) | payer OTHER, SELFPAY ==
--- NOTE | 2022-12-08 10:12 | MHC.OFFVIS ---
Intake Vital Signs 12/08/22 10:15 Height 6 ft 2 in Weight 204 lb 9.423 oz BMI 26.3 BP 110/78 Blood Pressure Location Lt brachial Position Sitting Pulse 69 Intake Visit Reasons: 1 year follow up Intake Note: 1 year follow up w/ EKG Collection Systems Worker Required: No Accompanied by: Self / Same As Patient Allergies No Known Allergies Allergy (Verified 12/08/22 10:15) Medication List - Last Reconciled 12/08/22 by Man Joy MD atorvastatin 80 mg PO BEDTIME doxycycline hyclate 100 mg PO BID lisinopril 5 mg PO DAILY 90 days metoprolol succinate ER 25 mg PO DAILY multivitamin (Daily Multi-Vitamin tablet) 1 tab PO DAILY 90 days nitroglycerin 0.4 mg sublingual Q5M PRN 30 days valacyclovir 1,000 mg PO BID PRN HPI HPI Comments History of Present Illness Details Marina returns for follow-up regarding coronary disease. To recall, in 2020 he had inferior STEMI. Underwent right coronary artery stenting. He also had disease in other areas but not intervened upon. Prior to this, history of smoking, excessive alcohol use and high lipids. Overall, he is feeling good. No new symptoms. Smoking has been cut back. He states that he is taking all his meds without any issues. Otherwise, fairly active and exercises without any issues. [facility] Medical History Immunity status testing Excessive drinking alcohol Smoking Other and unspecified hyperlipidemia (~03/2020) Atherosclerotic cardiovascular disease ST elevation myocardial infarction (STEMI) of inferior wall Patient denies medical problems Surgical History History of removal of cyst History of heart artery stent (~05/2020) Family History Father Heart disease Mother Cancer Other Substance use disorder Social History Housing: Apartment Alcohol intake: current Alcohol intake frequency: a few times a month Alcohol type: beer Patient Tobacco Use Status: Current everyday Tobacco user Tobacco use type: Cigarette e-Cigarette/Vaping Use: Never Used Substance Use Type: Marijuana Current occupational status: employed 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 Cognitive needs: No Hearing needs: No Vision needs: No Review of Systems Const Denies weakness ENT Denies dizziness Card Denies chest pain, Denies chest pain with activity, Denies syncope, Denies rapid heart rate, Denies pedal edema, Denies edema, Denies leg edema, Denies lightheadedness, Denies palpitations, Denies dyspnea, Denies dyspnea on exertion and Denies orthopnea Resp Denies cough, Denies dyspnea and Denies dyspnea on exertion GI Denies hematochezia and Denies change in stool character Musc Denies abnormal gait, Denies muscle cramps, Denies muscle weakness, Denies numbness, Denies radiating pain into limb and Denies tingling Neuro Denies abnormal gait, Denies dizziness, Denies syncope, Denies numbness, Denies tingling and Denies weakness Endo Denies palpitations Physical Exam Vital Signs: Last Vital Signs Pulse 69 12/08/22 10:15 BP 110/78 12/08/22 10:15 BMI result Body Mass Index 26.3 Const General: comfortable and no acute distress Orientation/consciousness: patient oriented x3 HEENT Other: Unremarkable Head: Yes normal to inspection Neck Neck: Yes normal visual inspection Chest Chest palpation & inspection: normal inspection of the chest Resp Auscultation: clear to auscultation bilaterally Cardio Palpation: normal PMI Heart sounds: S1 normal heart sound present, S2 normal heart sound present, no gallops, no murmurs and no rubs GI Palpation (GI): Soft to palpation Back/Spine/Pelvis Other: unremarkable Skin General skin exam: no rashes or lesions noted Neuro General: patient oriented x3 Extrem General: Yes normal to inspection Psych Mental Status: mental status grossly normal Office Procedures EKG Details: EKG with sinus rhythm at 69/Min; leftward axis; no significant ST-T changes and otherwise unremarkable[place] [id number], Complete Assessment & Plan Assessment & Plan (1) Atherosclerotic cardiovascular disease: Code(s): I25.10 - Atherosclerotic heart disease of [place] coronary artery without angina pectoris Plan: Status post DEREJE to RCA. He also has disease in LAD and circumflex. During the exercise stress test, he was able to exercise for 9 minutes and 30 seconds on Favio protocol reaching 10.9 METS. No anginal-type symptoms or clear ischemic changes on the EKG. The perfusion component was also unremarkable. For some reason, has not been taking aspirin. Advised to restart. (2) Other and unspecified hyperlipidemia: Onset Date: ~03/2020 Code(s): E78.5 - Hyperlipidemia, unspecified Plan: LDL was 230 mg/dL. With statins, this has improved to 101 mg per dL. There is other direct LDL pending today. We can review that. Possibly add Zetia after that. (3) Smoking: Code(s): F17.200 - Nicotine dependence, unspecified, uncomplicated Plan: He has cut back a lot but needs to stop completely. (4) Excessive drinking alcohol: Code(s): F10.10 - Alcohol abuse, uncomplicated Plan: Again, has cut back. Medications: New aspirin (Adult Aspirin Regimen) 81 mg PO DAILY 90 tabs 3RF Changed From valacyclovir 1,000 mg PO BID 7 days PRN 14 tabs 0RF rash To valacyclovir 1,000 mg PO BID PRN Coding Level of Care Code Est Pt Level 4 (31722) Diagnoses Atherosclerotic cardiovascular disease I25.10 Other and unspecified hyperlipidemia E78.5 Smoking F17.200 Excessive drinking alcohol F10.10 CPT Codes EKG - CPT: 01175-[id number], Complete ([id number])
[2022-12-08 10:15] VITALS: BP 110/78; PULSE 69; BMI 26.3
== END 2022-12-08 10:32 | disposition home or self-care (01) ==
PROVIDERS: PCP Internal Medicine; Visit Provider Internal Medicine
DX: I25.10 Atherosclerotic heart disease of native coronary artery without angina pectoris (principal); E78.5 Hyperlipidemia, unspecified; F17.200 Nicotine dependence, unspecified, uncomplicated; F10.10 Alcohol abuse, uncomplicated
CPT/HCPCS: 93010; 99214

== ENCOUNTER → 2022-12-08 10:08 | Outpatient (BNVA) | payer OTHER, SELFPAY | PROVIDERS: PCP Internal Medicine; Visit Provider Internal Medicine | DX: I25.10 Atherosclerotic heart disease of native coronary artery without angina pectoris (principal); E78.5 Hyperlipidemia, unspecified; F10.10 Alcohol abuse, uncomplicated; F17.210 Nicotine dependence, cigarettes, uncomplicated | CPT/HCPCS: 93005; 99212 ==

== ENCOUNTER 2023-06-05 10:00 | Outpatient (AMB) | payer OTHER, SELFPAY ==
[2023-06-05 12:02] VITALS: BP 122/80; PULSE 74; TEMP 36.9; O2SAT 97; BMI 26.1
--- NOTE | 2023-06-05 12:02 | MHC.OFFWIV ---
Intake Vital Signs 06/05/23 12:02 Height 6 ft 2 in Weight 203 lb 8 oz BMI 26.1 BP 122/80 Blood Pressure Location Lt brachial Position Sitting Pulse 74 Pulse Source Pulse Oximeter Temp 98.4 F Temp Source Oral Pulse Oximetry (%) 97 Oxygen Delivery Method Room Air Intake Visit Reasons: EP ?Strep Throat Intake Note: Pt presents to the office today for ? strep throat. Pt states he started a sore throat on Monday and states it is so sore that he is having trouble swalling. Patient Tobacco Use Status: Never used Tobacco Allergies No Known Allergies Allergy (Verified 06/05/23 13:06) Medication List - Last Reconciled 06/05/23 by Homer Maurice MD aspirin (Adult Aspirin Regimen) 81 mg PO DAILY atorvastatin 80 mg PO BEDTIME lisinopril 5 mg PO DAILY metoprolol succinate ER 25 mg PO DAILY multivitamin (Daily Multi-Vitamin tablet) 1 tab PO DAILY 90 days nitroglycerin 0.4 mg sublingual Q5M PRN 30 days valacyclovir 1,000 mg PO BID PRN HPI EP ?Strep Throat HPI Details Patient presents for a sick visit. Reporting symptoms of sinus congestion, sore throat and difficulty swallowing. Low-grade fever. No family member is sick. No recent travel. Patient reports symptoms of malaise and fatigue. [facility] Medical History Immunity status testing Excessive drinking alcohol Smoking Other and unspecified hyperlipidemia (~03/2020) Atherosclerotic cardiovascular disease ST elevation myocardial infarction (STEMI) of inferior wall Patient denies medical problems Surgical History History of removal of cyst History of heart artery stent (~05/2020) Family History Father Heart disease Mother Cancer Other Substance use disorder Social History (Updated 06/05/23 @ 12:06 by Alka Trinh MA) Housing: Apartment Alcohol intake: current Alcohol intake frequency: a few times a month Alcohol type: beer Patient Tobacco Use Status: Never used Tobacco Tobacco use type: Cigarette e-Cigarette/Vaping Use: Never Used Substance Use Type: Marijuana Current occupational status: employed 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 Cognitive needs: No Hearing needs: No Vision needs: No Physical Exam Vital Signs: Last Vital Signs Temp 98.4 F 06/05/23 12:02 Pulse 74 06/05/23 12:02 BP 122/80 06/05/23 12:02 Pulse Ox 97 06/05/23 12:02 Oxygen Delivery Method Room Air 06/05/23 12:02 BMI result Body Mass Index 26.1 Const General: cooperative and healthy appearing Nutritional Appearance: well nourished Orientation/consciousness: patient oriented x3 Limitations: no limitations HEENT Head: Yes normal to inspection Eyes General: appearance normal, both eyes and all related structures Neck Neck: Yes normal visual inspection Chest Chest palpation & inspection: normal palpation of entire chest wall Resp Effort & Inspection: normal respiratory effort Neuro General: patient oriented x3 Results AMB Rapid Strep AMB Rapid Strep Negative Last Edit by Alka Trinh MA on 06/05/23 12:15 Results Reviewed Results Reviewed: Laboratory Last Values Strep Scn Rapid Clinic Negative 06/05/23 12:10 Assessment & Plan Assessment & Plan (1) Upper respiratory tract infection: Code(s): J06.9 - Acute upper respiratory infection, unspecified Plan: Antibiotics ordered. Increase fluid intake. Tylenol for aches and pains. If symptoms worsen, follow-up here for a recheck. Orders: Orders AMB Rapid Strep Screen Today Z13.9 - Encounter for screening, unspecified Coding Level of Care Code Est Pt Level 3 (63314) Diagnoses Upper respiratory tract infection J06.9
== END 2023-06-05 14:56 | disposition home or self-care (01) ==
PROVIDERS: PCP Internal Medicine; Visit Provider Internal Medicine
DX: Z13.9 Encounter for screening, unspecified (principal); J06.9 Acute upper respiratory infection, unspecified
CPT/HCPCS: 87880; 99213

== ENCOUNTER 2023-06-08 10:06 | Outpatient (AMB) | payer OTHER, SELFPAY ==
[2023-06-08 11:02] VITALS: BP 120/90; PULSE 73; TEMP 36.9; O2SAT 96; BMI 25.3
--- NOTE | 2023-06-08 11:02 | MHC.OFFWIV ---
Intake Vital Signs 06/08/23 11:02 Height 6 ft 2 in Weight 197 lb BMI 25.3 BP 120/90 H Blood Pressure Location Lt brachial Position Sitting Pulse 73 Pulse Source Pulse Oximeter Temp 98.4 F Temp Source Temporal Artery Scan Pulse Oximetry (%) 96 Oxygen Delivery Method Room Air Intake Visit Reasons: Sore throat worsened [phone] Intake Note: pt is here today for sore throat started monday Patient Tobacco Use Status: Never used Tobacco Allergies No Known Allergies Allergy (Verified 06/08/23 11:04) Do you need a note to return to daycare/school/sports/work: Yes HPI HPI Comments History of Present Illness Details 43 y/o male patient who presents to walk in clinic with c/o Sore throat since Monday. Pt was seen at walk in clinic 06/04 for similar symptoms. He was prescribed Z-Pack. Pt reports not feeling better and believes infection is getting worse. Pt asking for Amoxicillin. Advised Pt Z-Pack did not work, it could mean the etiology is Viral vs Bacterial. Both Rapid Strap in office negative. Denies fevers but reports chills. [facility] Medical History Immunity status testing Excessive drinking alcohol Smoking Other and unspecified hyperlipidemia (~03/2020) Atherosclerotic cardiovascular disease ST elevation myocardial infarction (STEMI) of inferior wall Patient denies medical problems Surgical History History of removal of cyst History of heart artery stent (~05/2020) Family History Father Heart disease Mother Cancer Other Substance use disorder Social History (Updated 06/05/23 @ 12:06 by Alka Trinh MA) Housing: Apartment Alcohol intake: current Alcohol intake frequency: a few times a month Alcohol type: beer Patient Tobacco Use Status: Never used Tobacco Tobacco use type: Cigarette e-Cigarette/Vaping Use: Never Used Substance Use Type: Marijuana Current occupational status: employed 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 [employer] Cognitive needs: No Hearing needs: No Vision needs: No Review of Systems Const All systems reviewed & are unremarkable except as noted in HPI and below Physical Exam Vital Signs: Last Vital Signs Temp 98.4 F 06/08/23 11:02 Pulse 73 06/08/23 11:02 BP 120/90 H 06/08/23 11:02 Pulse Ox 96 06/08/23 11:02 Oxygen Delivery Method Room Air 06/08/23 11:02 BMI result Body Mass Index 25.3 Const General: comfortable and no acute distress Orientation/consciousness: patient oriented x3 HEENT Head: Yes normocephalic Ears: external ears normal and TM's normal bilaterally General nose exam: Normal nasal mucous membranes and turbinates present Face and sinus: Yes sinuses nontender Mouth: moist mucous membranes Throat: Yes posterior oropharynx normal Resp Effort & Inspection: normal respiratory effort and able to speak in complete sentences Auscultation: clear to auscultation bilaterally, no crackles, no rales, no rhonchi and no wheezes Cardio Rate: regular rate Rhythm: regular rhythm Neuro General: patient oriented x3 Assessment & Plan Assessment & Plan (1) Acute pharyngitis: Code(s): J02.9 - Acute pharyngitis, unspecified Qualifiers: Pharyngitis/tonsillitis etiology: unspecified etiology Qualified Code(s): J02.9 - Acute pharyngitis, unspecified Plan: - Warned Pt that if this is Viral Infection, Abx will not work - SARs today to r/o Virus - Warm fluids with Honey - OTC sore throat remedies. Orders: Orders SARS-CoV2/FLU/RSV Today J02.9 - Acute pharyngitis, unspecified Medications: New amoxicillin 250 mg PO BID 14 caps 0RF 7 days J02.9 - Acute pharyngitis, unspecified Coding Level of Care Code Est Pt Level 3 (91416) Diagnoses Acute pharyngitis, unspecified etiology J02.9 Pharyngitis/tonsillitis etiology: unspecified etiology Time Spent (min) 15
== END 2023-06-08 12:15 | disposition home or self-care (01) ==
PROVIDERS: PCP Internal Medicine; Visit Provider Nurse Practitioner Family
DX: J02.9 Acute pharyngitis, unspecified (principal)
CPT/HCPCS: 87880; 99213

== ENCOUNTER 2023-06-08 11:34 | Outpatient (REF) | payer OTHER, SELFPAY ==
[2023-06-08 14:33] LABS: Influenza A PCR NEGATIVE (Negative); Influenza B PCR NEGATIVE (Negative); Resp Syncy Virus RNA Qual PCR NEGATIVE (Negative); SARS COV2 PCR INHOUSE NEGATIVE (Negative)
== END 2023-06-08 11:35 | disposition home or self-care (01) ==
LOC: HO.LAB 11:34
PROVIDERS: Visit Provider Nurse Practitioner Family
DX: J02.9 Acute pharyngitis, unspecified (principal)
CPT/HCPCS: 0241U

== ENCOUNTER 2023-07-12 15:24 | Outpatient (AMB) | payer OTHER, SELFPAY ==
[2023-07-12 15:26] VITALS: BP 100/64; PULSE 57; O2SAT 97; BMI 25.7
--- NOTE | 2023-07-12 15:26 | MHC.PC.OV ---
Vital Signs 07/12/23 15:26 Height 6 ft 2 in Weight 200 lb BMI 25.7 BP 100/64 Blood Pressure Location Rt brachial Position Sitting Pulse 57 Pulse Source Pulse Oximeter Pulse Oximetry (%) 97 Oxygen Delivery Method Room Air Intake Visit Reasons: Annual PE Allergies No Known Allergies Allergy (Verified 07/12/23 15:26) Medication List - Last Reconciled 07/12/23 by Ben Simon MD aspirin (Adult Aspirin Regimen) 81 mg PO DAILY atorvastatin 80 mg PO BEDTIME lisinopril 5 mg PO DAILY metoprolol succinate ER 25 mg PO DAILY nitroglycerin 0.4 mg sublingual Q5M PRN 30 days Tobacco use date assessed: 07/12/23 Dental Screening Dental Screen Date: 07/12/23 Did you have a dental visit in the last 12 months?: Yes Did you have a dental problem in the last 6 months where you did not have access to dental care?: No Was dental information given to patient?: Patient has dentist HPI Annual PE HPI Details Patient is a 43-year-old gentleman came in today for physical examination Patient is having recurrent outbreak of herpes genitalia almost every month I have sent valacyclovir 500 mg that he needs to start taking every day Patient a history of coronary artery disease with stented coronary artery Seeing Cardiology [facility] once a year, has appointment coming up in November this year Labs are due order placed to be done fasting Colonoscopy referral placed as well Patient have a history of recurrent boils he is requesting a referral to Dermatology. [facility] Medical History Immunity status testing Excessive drinking alcohol Smoking Other and unspecified hyperlipidemia (~03/2020) Atherosclerotic cardiovascular disease ST elevation myocardial infarction (STEMI) of inferior wall Patient denies medical problems Surgical History History of removal of cyst History of heart artery stent (~05/2020) Family History Father Heart disease Mother Cancer Other Substance use disorder Social History Housing: Apartment Alcohol intake: current Alcohol intake frequency: a few times a month Alcohol type: beer Patient Tobacco Use Status: Never used Tobacco Tobacco use type: Cigarette e-Cigarette/Vaping Use: Never Used Substance Use Type: Marijuana service: No Current occupational status: employed 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 1. Little interest or pleasure in doing things: not at all 2. Feeling down, depressed, or hopeless: not at all 3. Trouble falling or staying asleep, or sleeping too much: not at all 4. Feeling tired or having little energy: not at all 5. Poor appetite or overeating: not at all 6. Feeling bad about yourself - or that you are a failure or have let yourself or your family down: not at all 7. Trouble concentrating on things, such as reading the newspaper or watching television: not at all 8. Moving or speaking so slowly that other people could have noticed. Or the opposite - being so fidgety or restless that you have been moving around a lot more than usual: not at all 9. Thoughts that you would be better off or of hurting yourself in some way: not at all Total score: 0 Depression Screening Interpretation: Negative Depression Screening Done: Yes 79022 - PHQ-9 Billing: Yes Source: Developed by Drs. Valentino Holcomb, Sharon Hurley, Evan Koenig and colleagues, with an educational olayinka from [employer]. Thrive Questionnaire Date Thrive assessed: 12/07/22 AUDIT C Alcohol Use Questionnaire (AUDIT-C) 1. How often do you have a drink containing alcohol?: 2-3 times a week 2. How many drinks containing alcohol do you have on a typical day when you are drinking?: 1 or 2 3. How often do you have six or more drinks on one occasion?: Never Total Score: 3 Score Reviewed/Action Taken: Yes ANAID-7 AMB Questionnaire ANAID-7 Date ANAID - 7 assessed: 12/07/22 Source: Developed by Drs. Valentino Holcomb, Evan Orantes and colleagues, with an educational olayinka from [employer]. Review of Systems Const Denies chills, Denies fever(s) and Denies headache(s) Eyes Denies blurry vision ENT Denies headache(s), Denies nasal discharge, Denies nasal obstruction, Denies odynophagia and Denies sinus pain Card Denies chest pain at rest and Denies chest pain with activity Resp Denies cough and Denies hemoptysis GI Denies diarrhea, Denies odynophagia, Denies vomiting and Denies hematemesis Reports as per HPI Musc Denies abnormal gait Skin/Breast Reports as per HPI Neuro Denies Neuro-related abnormal movements, Denies Abnormal speech present, Denies abnormal gait, Denies headache(s) and Denies Sensory deficit (Neuro) Psych Denies mood swings and Denies paranoia Endo Reports as per HPI Eduardo/Lymph Reports as per HPI Aller/Immun Reports as per HPI Physical exam (Primary Care) Vital Signs: Last Vital Signs Pulse 57 07/12/23 15:26 BP 100/64 07/12/23 15:26 Pulse Ox 97 07/12/23 15:26 Oxygen Delivery Method Room Air 07/12/23 15:26 BMI result Body Mass Index 25.7 Tobacco/Smoking Status: Tobacco use Status Tobacco use date assessed 07/12/23 07/12/23 15:27 Patient Tobacco Use Status Never used Tobacco 07/12/23 15:27 Tobacco use type Cigarette 07/12/23 15:27 e-Cigarette/Vaping Use Never Used 07/12/23 15:27 Depression Screening Interpretation: Negative Thrive Assessment: Date of Thrive Assessment Date Thrive assessed 12/07/22 07/12/23 15:27 Const General: cooperative, comfortable and no acute distress Orientation/consciousness: patient oriented x3 HENMT Head: Yes normocephalic and Yes atraumatic Eyes General: appearance normal, both eyes and all related structures Pupils: Equal, round and reactive pupils present EOM: EOMs intact bilaterally Neck Neck: Yes supple and No lymphadenopathy Thyroid: Thyroid normal Lymphatic: no lymphadenopathy noted Resp Effort & Inspection: normal respiratory effort and able to speak in complete sentences Auscultation: clear to auscultation bilaterally Cardio Heart sounds: S1 normal heart sound present and S2 normal heart sound present GI Palpation (GI): Soft to palpation and nontender Auscultation: normal bowel sounds General: Yes no CVA tenderness Back/Spine/Pelvis Back: no CVA tenderness Skin General skin exam: elasticity normal and turgor normal Neuro General: patient oriented x3 and gait normal Cranial nerves: Yes Equal, round and reactive pupils present Speech: No Abnormal speech present Sensory Exam: No Sensory deficit (Neuro) Coordination: tandem gait normal and Romberg test negative Extrem General: Yes normal exam except as noted and No edema Assessment and Plan Assessment & Plan (1) Encounter for general adult medical examination with abnormal findings: Code(s): Z00.01 - Encounter for general adult medical examination with abnormal findings (2) Lipid disorder: Code(s): E78.9 - Disorder of lipoprotein metabolism, unspecified (3) Recurrent boils: Code(s): L02.93 - Carbuncle, unspecified (4) Herpes genitalia: Code(s): A60.00 - Herpesviral infection of urogenital system, unspecified Qualifiers: Herpes simplex infection site: unspecified Qualified Code(s): A60.00 - Herpesviral infection of urogenital system, unspecified (5) Atherosclerotic cardiovascular disease: Code(s): I25.10 - Atherosclerotic heart disease of [place] coronary artery without angina pectoris (6) History of inferior wall myocardial infarction: Code(s): I25.2 - Old myocardial infarction (7) Encounter for screening colonoscopy: Code(s): Z12.11 - Encounter for screening for malignant neoplasm of colon Plan Patient is a 43-year-old gentleman came in today for physical examination Patient is having recurrent outbreak of herpes genitalia almost every month I have sent valacyclovir 500 mg that he needs to start taking every day Patient a history of coronary artery disease with stented coronary artery Seeing Cardiology [facility] once a year, has appointment coming up in November this year Labs are due order placed to be done fasting Colonoscopy referral placed as well Patient have a history of recurrent boils he is requesting a referral to Dermatology. Orders: Orders Complete Blood Count Auto Diff Today A60.00 - Herpesviral infection of urogenital system, unspecified, E78.9 - Disorder of lipoprotein metabolism, unspecified, I25.10 - Atherosclerotic heart disease of [place] coronary artery without angina pectoris, I25.2 - Old myocardial infarction, L02.93 - Carbuncle, unspecified, Z00.01 - Encounter for general adult medical examination with abnormal findings Lipid Panel Today A60.00 - Herpesviral infection of urogenital system, unspecified, E78.9 - Disorder of lipoprotein metabolism, unspecified, I25.10 - Atherosclerotic heart disease of [place] coronary artery without angina pectoris, I25.2 - Old myocardial infarction, L02.93 - Carbuncle, unspecified, Z00.01 - Encounter for general adult medical examination with abnormal findings Comprehensive [place]. Panel Fast Today A60.00 - Herpesviral infection of urogenital system, unspecified, E78.9 - Disorder of lipoprotein metabolism, unspecified, I25.10 - Atherosclerotic heart disease of [place] coronary artery without angina pectoris, I25.2 - Old myocardial infarction, L02.93 - Carbuncle, unspecified, Z00.01 - Encounter for general adult medical examination with abnormal findings Referrals Dermatology Referral L02.93 - Carbuncle, unspecified Gastroenterology Referral Z12.11 - Encounter for screening for malignant neoplasm of colon Medications: New valacyclovir 500 mg PO DAILY 90 tabs 3RF Coding Level of Care Code Est Pt Level 3 (68684) Est Pt Prev Care 40-64y(70095) Diagnoses Encounter for general adult medical examination with abnormal findings Z00.01 Lipid disorder E78.9 Recurrent boils L02.93 Genital herpes simplex, unspecified site A60.00 Herpes simplex infection site: unspecified Atherosclerotic cardiovascular disease I25.10 History of inferior wall myocardial infarction I25.2 Encounter for screening colonoscopy Z12.11
== END 2023-07-12 15:56 | disposition home or self-care (01) ==
PROVIDERS: PCP Internal Medicine; Visit Provider Internal Medicine
DX: Z00.01 Encounter for general adult medical examination with abnormal findings (principal); E78.9 Disorder of lipoprotein metabolism, unspecified; L02.93 Carbuncle, unspecified; A60.00 Herpesviral infection of urogenital system, unspecified; I25.10 Atherosclerotic heart disease of native coronary artery without angina pectoris; I25.2 Old myocardial infarction; Z12.11 Encounter for screening for malignant neoplasm of colon
CPT/HCPCS: 99213; 99396

== ENCOUNTER 2024-02-18 11:40 | Emergency (ER) | payer SELFPAY ==
[2024-02-18 11:49] VITALS: BP 133/84; PULSE 86; RESP 18; TEMP 36.6; O2SAT 98; BMI 25.0
--- NOTE | 2024-02-18 11:49 | ED_ITS ---
HPI - Skin/Abscess/Foreign Bdy General Chief complaint: Extremity Injury, Lower Stated complaint: foot irritation Time Seen by Provider: 02/18/24 11:51 Source: patient Mode of arrival: ambulatory Limitations: no limitations History of Present Illness ED Provider: Deanna Us APRN HPI narrative: 43-year-old male with a history of coronary artery disease with 1 stent, hypertension, hyperlipidemia presents the ER with complaints of left foot redness and irritation for several days. Patient reports that this began after his foot was rubbing against the top of his sneaker. He denies any fevers, chills, numbness, tingling, swelling. Related Data Previous Rx's ?Medication ?Instructions ?Recorded nitroglycerin 0.4 mg sublingual 0.4 mg sublingual Q5M PRN angina 07/14/21 tablet 30 days #60 tabs valacyclovir 500 mg tablet 500 mg PO DAILY #90 tabs 07/12/23 lisinopril 5 mg tablet 5 mg PO DAILY #90 tabs 09/27/23 metoprolol succinate 25 mg 25 mg PO DAILY #90 tabs 09/27/23 tablet,extended release 24 hr aspirin 81 mg tablet,delayed 81 mg PO DAILY #90 tabs 10/05/23 release (Adult Aspirin Regimen) atorvastatin 80 mg tablet 80 mg PO BEDTIME #90 tabs 10/05/23 cephalexin 500 mg capsule 500 mg PO TID #21 caps 02/18/24 mupirocin 2 % topical ointment 1 appl topical DAILY #50 grams 02/18/24 Allergies Allergy/AdvReac Type Severity Reaction Status Date / Time No Known Allergies Allergy Verified 02/18/24 11:51 Review of Systems 2 Review of Systems: Yes all other systems are reviewed and are negative Constitutional: Constitutional: Reports no additional constitutional complaints, Denies body ache(s), Denies chills, Denies fever(s), Denies headache(s) and Denies weakness Eyes: Eyes: Reports no additional eye complaints and Denies change in vision ENT: Reports system reviewed and no additional complaints, except as documented, Denies dizziness, Denies headache(s), Denies nasal congestion, Denies nasal discharge and Denies neck pain Cardiovascular: Cardiovascular: Reports no additional cardiovascular complaints, Denies chest pain, Denies leg edema and Denies dyspnea Respiratory: Respiratory: Reports no additional respiratory complaints, Denies cough and Denies dyspnea Gastrointestinal: Gastrointestinal: Reports no additional gastrointestinal complaints, Denies abdominal pain, Denies diarrhea, Denies nausea and Denies vomiting Genitourinary: Genitourinary: Denies urinary incontinence Musculoskeletal: Musculoskeletal: Reports no additional musculoskeletal complaints, Denies back pain, Denies arthralgias, Denies joint swelling, Denies neck pain, Denies numbness and Denies tingling Integumentary/Breasts: Skin/Breast: Reports system reviewed and no additional complaints, except as docu, Denies rash and Reports wounds Neurologic: Reports system reviewed and no additional complaints, except as documented, Denies Abnormal speech present, Denies dizziness, Denies headache(s), Denies numbness, Denies tingling and Denies weakness PMFSH Past Medical History Attestation statement: The following information was validated with the patient. Source: old records reviewed and nursing notes reviewed Medical History Immunity status testing Excessive drinking alcohol Smoking Other and unspecified hyperlipidemia (~03/2020) Atherosclerotic cardiovascular disease ST elevation myocardial infarction (STEMI) of inferior wall Patient denies medical problems Surgical History History of removal of cyst History of heart artery stent (~05/2020) Family History Family History Father Heart disease Mother Cancer Other Substance use disorder Social History Social History Housing: Apartment Alcohol intake: current Alcohol intake frequency: a few times a month Alcohol type: beer Patient Tobacco Use Status: Never used Tobacco Tobacco use type: Cigarette e-Cigarette/Vaping Use: Never Used Substance Use Type: Marijuana Do you have a plan to hurt others: No Plan service: No Current occupational status: employed 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 Cognitive needs: No Hearing needs: No Vision needs: No Physical Exam 2 Vital Signs: Vital Signs: Last Vital Signs Temp 98 F 02/18/24 11:49 Pulse 86 02/18/24 11:49 Resp 18 02/18/24 11:49 BP 133/84 02/18/24 11:49 Pulse Ox 98 02/18/24 11:49 BMI result Body Mass Index 25.0 Const: General: cooperative, healthy appearing, comfortable and no acute distress Orientation/consciousness: patient oriented x3 Limitations: no limitations HEENT: Head: Yes normal to inspection Ears: hearing grossly normal bilaterally General nose exam: Normal external nose present Face and sinus: Yes normal facial exam Mouth: Normal oral and palatal mucosa present Throat: Yes posterior oropharynx normal Eyes: General: appearance normal, both eyes and all related structures P upils: Equal, round and reactive pupils present Neck: Neck: Yes normal visual inspection Chest: Chest palpation & inspection: normal inspection of the chest Resp: Effort & Inspection: normal respiratory effort Auscultation: clear to auscultation bilaterally Cardio: Rate: regular rate Rhythm: regular rhythm Peripheral pulses: P eripheral pulses 2+ throughout GI: Inspection: Yes normal to inspection Palpation (GI): Soft to palpation and nontender Auscultation: normal bowel sounds Back/Spine/Pelvis: Thoracic/Lumbar Spine: thoracic and lumbar spine normal to inspection Skin: General skin exam: no rashes or lesions noted Neuro: General: patient oriented x3, no focal motor deficits and normal sensation to monofilament Cranial nerves: Yes Equal, round and reactive pupils present Cognition (Neuro): normal cognition Speech: No Abnormal speech present Gait exam (Neuro): Normal gait present Motor exam (neuro): 5/5 motor strength present throughout Extrem: Other: Full range of motion. Surrounding skin is pink warm and dry. Normal distal pulses. Normal sensation General: Yes normal to inspection Medical Decision Making Medical Decision Making MDM Narrative: 43-year-old male with a history of coronary artery disease with 1 stent, hypertension, hyperlipidemia presents the ER with complaints of left foot redness and irritation for several days. Patient reports that this began after his foot was rubbing against the top of his sneaker. He denies any fevers, chills, numbness, tingling, swelling. See PE for pictures. Patient appears to have very local cellulitis. No systemic signs or symptoms concerning for infection. Patient will given started on cephalexin for 7 days and given a prescription for moved here seen their recommendations for home wound care. Reviewed worrisome signs and symptoms and when to return to the emergency room. Comfortable plan for discharge home. Differential Diagnosis Differential Diagnoses: The differential diagnosis associated with the presentation includes Cellulitis Low suspicion for osteomyelitis, nec fasc, septic joint Admission/Observation Consideration of admission/observation: Escalation of care including admission/observation considered Low suspicion for osteomyelitis, nec fasc, septic joint or systemic signs or symptoms concerning for infection requiring labs, imaging, admission with IV antibiotics Tests considered The following testing was considered but not selected: Low suspicion for osteomyelitis, nec fasc, septic joint or systemic signs or symptoms concerning for infection requiring labs, imaging Prescription Management I considered prescription management with: Pain Medication and Antibiotic Chronic Conditions Patient?s care impacted by: Hypertension Discharge Plan Discharge Clinical Impression: Cellulitis Patient Disposition: Home, Self-Care Instructions: Cellulitis (ED) Additional Instructions: Keep the wound clean, covered and dry Return for increasing redness, swelling or fever >100.4 Prescriptions: New cephalexin 500 mg capsule 500 mg PO TID Qty: 21 0RF mupirocin 2 % ointment 1 appl topical DAILY Qty: 50 0RF No Action nitroglycerin 0.4 mg tablet, sublingual 0.4 mg sublingual Q5M PRN (Reason: angina) 30 Days Qty: 60 0RF Rx Instructions: Three doses max within 15 minutes lisinopril 5 mg tablet 5 mg PO DAILY Qty: 90 3RF metoprolol succinate 25 mg tablet extended release 24 hr 25 mg PO DAILY Qty: 90 3RF aspirin [Adult Aspirin Regimen] 81 mg tablet,delayed release (DR/EC) 81 mg PO DAILY Qty: 90 3RF atorvastatin 80 mg tablet 80 mg PO BEDTIME Qty: 90 3RF valacyclovir 500 mg tablet 500 mg PO DAILY Qty: 90 3RF Referrals: Ben Simon MD [Primary Care Provider] - 1 week Print Language: Amharic
[2024-02-18 12:05] VITALS: BP 133/84; PULSE 86; RESP 18; TEMP 36.6; O2SAT 98
== END 2024-02-18 12:05 | disposition home or self-care (01) ==
PROVIDERS: Emergency Provider Emergency Medicine Emergency Medical Services; PCP Internal Medicine
DX: L03.116 Cellulitis of left lower limb (principal); I10 Essential (primary) hypertension; E78.5 Hyperlipidemia, unspecified
CPT/HCPCS: 99282

== ENCOUNTER 2024-02-26 21:39 | Emergency (ER) | payer SELFPAY ==
[2024-02-26 21:41] VITALS: BP 123/72; PULSE 60; RESP 16; TEMP 36.7; O2SAT 96; BMI 25.0
[2024-02-26 22:32] LABS: MANUAL DIFF FLAG NO
[2024-02-26 22:35] LABS: Basophils Percent Auto 0.6 % (0-2); Eosinophils Absolute Auto 0.2 X10*3/uL (0.0-0.4); Eosinophils Percent Auto 4.6 % (0-4); Hematocrit 40.3 % (42.0-52.0); Hemoglobin 13.4 g/dl (14.0-18.0); Imm Gran Abs Auto 0.02 X10*3/uL (0.00-0.03); Imm Gran Pct Auto 0.4 % (0.0-0.4); Lymphocytes Percent Auto 40.7 % (20-40); Mean Corpuscular HGB Conc 33.3 g/dl (31.0-36.0); Mean Corpuscular Hemoglobin 29.5 pg (27.0-33.0); Mean Corpuscular Volume 88.6 fL (80.0-98.0); Mean Platelet Volume 9.9 fL (9.4-12.4); Monocytes Absolute Auto 0.5 X10*3/uL (0.1-1.2); Monocytes Percent Auto 11.2 % (2-11); Neutrophils Percent Auto 42.5 % (45-73); Platelet Count 200 X10*3/uL (160-400); Red Blood Count 4.55 X10*6/uL (4.60-5.80); Red Cell Distribution Width 14.3 % (11.0-16.0); White Blood Count 4.8 X10*3/uL (4.8-10.8)
[2024-02-26 22:53] LABS: Alanine Aminotransferase 30 U/L (0-40); Albumin Level 4.5 g/dL (3.5-5.0); Alkaline Phosphatase 75 U/L (39-117); Anion Gap 13 (12-20); Aspartate Amino Transferase 27 U/L (5-37); Bilirubin Total 0.5 mg/dL (0.0-1.0); Blood Urea Nitrogen 12 mg/dL (9-16); Calcium 8.8 mg/dL (8.4-10.2); Carbon Dioxide 27 mmol/L (22-29); Chloride 104 mmol/L (96-108); Creatinine Clr Calc Pharmacy 126.6; Estimated Glomerular Filt Rate > 60; Glucose Random 86 mg/dL (60-115); Potassium 3.5 mmol/L (3.3-5.1); Sodium 140 mmol/L (135-145); Total Protein 7.8 g/dL (6.5-8.0)
--- NOTE | 2024-02-26 23:32 | ED.GENADULT ---
HPI - General Adult General Chief complaint: Skin/Abscess/Foreign Body Stated complaint: Foot infection/hives Time Seen by Provider: 02/26/24 23:32 History of Present Illness ED Provider: Effie RBUI narrative: The patient is a 43-year-old male who has had a lesion on the dorsal aspect of his left foot for a few weeks. He thought this was the result of something on his sneaker digging into the skin on the top of his foot. He came to the emergency room 9 days ago on February 17 and was diagnosed with cellulitis and was placed on cephalexin orally and mupirocin topically. Patient says that a few days ago he broke out in a rash on much of his body that is slightly itchy. No shortness of breath. He comes to the emergency department today because of this rash which has been present for a couple of days and he also comes because of the lesion on his foot has not gotten any better. Additionally he has a similar but less severe lesion on the right foot. No fever, sweats, chills. The patient has a history of eczema. He has seen the fountain vending mechanic Dr. Trini Yates of [place] in the past for his eczema. 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 Related Data Previous Rx's ?Medication ?Instructions ?Recorded nitroglycerin 0.4 mg sublingual 0.4 mg sublingual Q5M PRN angina 07/14/21 tablet 30 days #60 tabs valacyclovir 500 mg tablet 500 mg PO DAILY #90 tabs 07/12/23 lisinopril 5 mg tablet 5 mg PO DAILY #90 tabs 09/27/23 metoprolol succinate 25 mg 25 mg PO DAILY #90 tabs 09/27/23 tablet,extended release 24 hr aspirin 81 mg tablet,delayed 81 mg PO DAILY #90 tabs 10/05/23 release (Adult Aspirin Regimen) atorvastatin 80 mg tablet 80 mg PO BEDTIME #90 tabs 10/05/23 cephalexin 500 mg capsule 500 mg PO TID #21 caps 02/18/24 mupirocin 2 % topical ointment 1 appl topical DAILY #50 grams 02/18/24 doxycycline monohydrate 100 mg 100 mg PO BID #14 caps 02/27/24 capsule prednisone 5 mg tablet 5 mg PO DIRECTED #66 tabs 02/27/24 Allergies Allergy/AdvReac Type Severity Reaction Status Date / Time No Known Allergies Allergy Verified 02/26/24 21:48 Review of Systems Review of Systems: Yes all other systems are reviewed and are negative [facility] Past Medical History Medical History Immunity status testing Excessive drinking alcohol Smoking Other and unspecified hyperlipidemia (~03/2020) Atherosclerotic cardiovascular disease ST elevation myocardial infarction (STEMI) of inferior wall Patient denies medical problems Surgical History History of removal of cyst History of heart artery stent (~05/2020) Family History Family History Father Heart disease Mother Cancer Other Substance use disorder Social History Social History Housing: Apartment Alcohol intake: current Alcohol intake frequency: a few times a month Alcohol type: beer Patient Tobacco Use Status: Never used Tobacco Tobacco use type: Cigarette e-Cigarette/Vaping Use: Never Used Substance Use Type: Marijuana Advance Directives: No Advance Directives Information Provided: No Do you have a plan to hurt others: No Plan service: No Current occupational status: employed 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 Cognitive needs: No Hearing needs: No Vision needs: No Physical Exam ED Vital Signs: Vital Signs - 24 hr 02/26/24 21:41 02/27/24 00:00 02/27/24 01:51 Temperature 98.1 F 97.8 F 98.2 F Pulse Rate 60 52 64 Respiratory Rate 16 16 14 Blood Pressure 123/72 122/78 127/79 Pulse Oximetry 96 98 96 Oxygen Delivery Method Room Air Room Air Room Air 02/27/24 01:56 Temperature 98.2 F Pulse Rate 64 Respiratory Rate 14 Blood Pressure 127/79 Pulse Oximetry 96 Oxygen Delivery Method Room Air BMI result Body Mass Index 25.0 Const Other: The patient is a 43-year-old male who looks as though he is ordinarily a fit and healthy 43-year-old. He does not seem in acute distress. HENMT Other: The appearance of the face is unremarkable. No lesions on the face. Mucous membranes are moist. No enanthem. Eyes General: appearance normal, both eyes and all related structures Resp Effort & Inspection: normal respiratory effort Auscultation: clear to auscultation bilaterally Cardio Rate: regular rate Rhythm: regular rhythm Heart sounds: S1 normal heart sound present and S2 normal heart sound present Skin Other: The patient has a lesion on the dorsum of his left foot that is fairly large. There is a central region which is excoriated. This is surrounded by very bumpy area of skin which has the appearance of vesicles. On the right foot there is a small area of a patch of vesicle like lesions. On the patient's trunk he has a very sparse maculopapular rash The above is a picture of the patient's left side under the left axilla. Neuro Other: The patient is awake, alert, pleasant, cooperative. Cranial nerves are intact. He moves his extremities normally and appropriately. He is grossly neurologically intact. Extrem Other: The patient has an excoriated lesion on the dorsum of the left foot but seems to have full range of motion of the left ankle and the toes. Medications Administered Discontinued Medications Generic Name Dose Route Start Last Admin Trade Name Freq PRN Reason Stop Dose Admin Doxycycline Monohydrate 100 mg 02/27/24 01:30 02/27/24 01:48 Doxycycline Monohydrate 100 Mg Capsule PO 02/27/24 01:31 100 mg ONCE ONE Administration Prednisone 60 mg 02/27/24 01:30 02/27/24 01:48 Prednisone 20 Mg Tablet PO 02/27/24 01:31 60 mg ONCE ONE Administration Medical Decision Making Medical Decision Making [facility] Narrative: The patient is a 43-year-old male with a history of eczema presents with a lesion on the dorsum of his left foot that has been present for a few weeks and which he attributes to friction from his sneakers. On his right foot he has a much smaller patch of abnormal skin that is similar but without excoriation. He also has a mild diffuse maculopapular rash on his trunk which is fairly nonspecific. The excoriated lesion on the left foot is a weeping lesion. It is weeping a serous fluid. This was swabbed for a routine culture and also for a fungal swab. Overall my impression is that, given the patient's history of eczema, and given appearance of the lesions which I think resemble something like a contact dermatitis more than anything else, I think this is probably some kind of an atopic phenomenon. He will be placed on a course of prednisone. He will also be placed on a course of doxycycline. He is encouraged to try to be seen by his fountain vending mechanic but he is not sure that he has active insurance at the moment. Lab Data 02/26/24 22:28 02/26/24 22:28 Labs: Lab Results 02/26/24 Range/Units 22:28 WBC 4.8 (4.8-10.8) X10*3/uL RBC 4.55 L (4.60-5.80) X10*6/uL Hgb 13.4 L (14.0-18.0) g/dl Hct 40.3 L (42.0-52.0) % MCV 88.6 (80.0-98.0) fL MCH 29.5 (27.0-33.0) pg MCHC 33.3 (31.0-36.0) g/dl RDW 14.3 (11.0-16.0) % Plt Count 200 (160-400) X10*3/uL MPV 9.9 (9.4-12.4) fL Immature Gran % (Auto) 0.4 (0.0-0.4) % Neut % (Auto) 42.5 L (45-73) % Lymph % (Auto) 40.7 H (20-40) % [place] % (Auto) 11.2 H (2-11) % Eos % (Auto) 4.6 H (0-4) % Baso % (Auto) 0.6 (0-2) % Lymph # (Auto) 2.0 (1.2-4.9) X10*3/uL [place] # (Auto) 0.5 (0.1-1.2) X10*3/uL Eos # (Auto) 0.2 (0.0-0.4) X10*3/uL Baso # (Auto) 0.0 (0.0-0.2) X10*3/uL Abs Immat Gran (auto) 0.02 (0.00-0.03) X10*3/uL Absolute Neuts (auto) 2.0 (2.0-8.3) x10*3/uL Absolute Nucleated RBC 0.000 (0.0-0.012) X10*3/uL Nucleated RBC % (auto) 0.0 (0.0-0.2) /100WBC Sodium 140 (135-145) mmol/L Potassium 3.5 (3.3-5.1) mmol/L Chloride 104 (96-108) mmol/L Carbon Dioxide 27 (22-29) mmol/L Anion Gap 13 (12-20) BUN 12 (9-16) mg/dL Creatinine 0.88 (0.5-1.4) mg/dL Estim Creat Clear Calc 126.6 Estimated GFR > 60 Random Glucose 86 (60-115) mg/dL Calcium 8.8 D (8.4-10.2) mg/dL Total Bilirubin 0.5 (0.0-1.0) mg/dL AST 27 (5-37) U/L ALT 30 (0-40) U/L Alkaline Phosphatase 75 (39-117) U/L C-Reactive Protein 0.05 (< or = 0.50) mg/dL Total Protein 7.8 (6.5-8.0) g/dL Albumin 4.5 (3.5-5.0) g/dL Discharge Plan Discharge Clinical Impression: Dermatitis of left foot, Acute maculopapular rash Patient Disposition: Home, Self-Care Additional Instructions: The exact cause of the lesion on your foot he is not clear. It is possible that this is some kind of inflammatory reaction you have therefore been started on a course of prednisone, an anti-inflammatory medication. This medication has been prescribed as a ?taper. ? This means that you will be taking a decreasing dose of this medication. Today you received 60 mg in the emergency room. Tomorrow you will take 55 mg (11 five mg tablets), the next day you will take 50 mg (10 five mg tablets), and you will continue to take 1 tablet less per day until done. You have also been started on a new antibiotic, doxycycline. Please take this medication 2 times a day. Please keep the lesion on your left foot clean and dry. Wash it gently with soap and water every day. Apply the nonstick pads. Please contact your neurologist to see if there is any chance that they can see you for a more informed opinion. Additionally we have sent swabs by to identify if there is definitely any bacteria involved in the lesion on your left foot and also a second swab to look for possible fungus. You may always contact your primary care doctor for additional advice as well. Return to the emergency room if significantly worse at any time. Prescriptions: New doxycycline monohydrate 100 mg capsule 100 mg PO BID Qty: 14 0RF prednisone 5 mg tablet 5 mg PO DIRECTED Qty: 66 0RF Rx Instructions: Eleven tablets by mouth for 1 day, then 10 tablets by mouth for 1 day, then 9 tablets by mouth for 1 day, continue to take 1 tablet less per day until done. No Action nitroglycerin 0.4 mg tablet, sublingual 0.4 mg sublingual Q5M PRN (Reason: angina) 30 Days Qty: 60 0RF Rx Instructions: Three doses max within 15 minutes lisinopril 5 mg tablet 5 mg PO DAILY Qty: 90 3RF metoprolol succinate 25 mg tablet extended release 24 hr 25 mg PO DAILY Qty: 90 3RF aspirin [Adult Aspirin Regimen] 81 mg tablet,delayed release (DR/EC) 81 mg PO DAILY Qty: 90 3RF atorvastatin 80 mg tablet 80 mg PO BEDTIME Qty: 90 3RF cephalexin 500 mg capsule 500 mg PO TID Qty: 21 0RF mupirocin 2 % ointment 1 appl topical DAILY Qty: 50 0RF valacyclovir 500 mg tablet 500 mg PO DAILY Qty: 90 3RF Referrals: Ben Simon MD [Primary Care Provider] - (foot lesion, diffuse rash) Trini Yates MD [Physician] - (foot lesion and diffuse rash) Stand Alone Forms: Work/School Release Interventions: ED Discharge Assessment Last Done: 02/27/24 01:56 Discharge Date/Time: 02/27/24 01:56 Print Language: Yakut
[2024-02-27] VITALS: BP 122/78; PULSE 52; RESP 16; TEMP 36.6; O2SAT 98
[2024-02-27 01:42] LABS: C Reactive Protein 0.05 mg/dL (< or = 0.50)
[2024-02-27] MEDS: Doxycycline Monohydrate 100 MG CAPSULE PO (01:48)
[2024-02-27] MEDS: predniSONE 20 MG TABLET 60 MG PO (01:48)
[2024-02-27 01:51] VITALS: BP 127/79; PULSE 64; RESP 14; TEMP 36.8; O2SAT 96
[2024-02-27 01:56] VITALS: BP 127/79; PULSE 64; RESP 14; TEMP 36.8; O2SAT 96
== END 2024-02-27 01:56 | disposition home or self-care (01) ==
PROVIDERS: Emergency Provider Emergency Medicine; PCP Internal Medicine
DX: L50.6 Contact urticaria (principal); L30.8 Other specified dermatitis; R21 Rash and other nonspecific skin eruption; Z79.899 Other long term (current) drug therapy
CPT/HCPCS: 36415; 80053; 85025; 86140; 87070; 87077; 87102; 87186; 87205; 99283

== ENCOUNTER 2024-03-07 20:48 | Emergency (ER) | payer SELFPAY ==
--- NOTE | ~2024-03-07 | XR_ITS ---
EXAMINATION: XR FOOT, LEFT CLINICAL INFORMATION: wound COMPARISON: None available. TECHNIQUE: AP, lateral, and oblique views of the left foot. FINDINGS: No fracture, dislocation, or suspicious focal bony lesion. There is normal alignment of the forefoot, midfoot, and hindfoot. Mild spurring of the intertarsal joints dorsally, most notably involving the anterior process of the talus. Mild degenerative changes in the tibiotalar joint. Tiny plantar calcaneal spur. Grossly no soft tissue defect seen. No soft tissue gas or radiopaque foreign body seen. Soft tissues appear normal aside from vascular calcification. XR/XR foot LT min 3V IMPRESSION: No acute findings left foot. Electronically signed by: Haile Ryan MD 03/08/2024 08:57 AM [facility]
[2024-03-07 20:56] VITALS: BP 125/92; PULSE 91; RESP 18; O2SAT 99; BMI 27.2
--- NOTE | 2024-03-07 20:58 | ED.GENADULT ---
HPI - General Adult General Chief complaint: Wound/Laceration Stated complaint: left foot infection Time Seen by Provider: 03/08/24 06:28 Source: patient and RN notes reviewed Mode of arrival: ambulatory Limitations: no limitations History of Present Illness ED Provider: Lidia Schultz PA-C HPI narrative: This is a 43-year-old male, with a past medical history of cardiac stent on aspirin, who presents to the emergency department with complaints of left foot wound. Patient has been seen here 2 times in the last 2 weeks due to this foot wound. Foot wound started off as a abrasion which has since progressed into a larger wound. He states that the area has been draining fluid. He was on doxycycline and Keflex however states that his symptoms have not improved and believes that it is getting worse. He also was prescribed a fungal cream which he discontinued as he believes his though he had a allergic reaction to. He states that the wound was started off due to the sneakers that he was wearing. He denies any fevers or chills. No other complaints or concerns at this time. MD complaint: Foot wound Onset (ago): week(s) Location: lower extremity Radiation: non-radiation Quality: aching Pain Consistency: constant Relieving factors: none Exacerbating factors: none Associated symptoms: denies other symptoms Treatments prior to arrival: none Related Data Previous Rx's ?Medication ?Instructions ?Recorded nitroglycerin 0.4 mg sublingual 0.4 mg sublingual Q5M PRN angina 07/14/21 tablet 30 days #60 tabs valacyclovir 500 mg tablet 500 mg PO DAILY #90 tabs 07/12/23 lisinopril 5 mg tablet 5 mg PO DAILY #90 tabs 09/27/23 metoprolol succinate 25 mg 25 mg PO DAILY #90 tabs 09/27/23 tablet,extended release 24 hr aspirin 81 mg tablet,delayed 81 mg PO DAILY #90 tabs 10/05/23 release (Adult Aspirin Regimen) atorvastatin 80 mg tablet 80 mg PO BEDTIME #90 tabs 10/05/23 cephalexin 500 mg capsule 500 mg PO TID #21 caps 02/18/24 mupirocin 2 % topical ointment 1 appl topical DAILY #50 grams 02/18/24 doxycycline monohydrate 100 mg 100 mg PO BID #14 caps 02/27/24 capsule prednisone 5 mg tablet 5 mg PO DIRECTED #66 tabs 02/27/24 cephalexin 500 mg capsule 500 mg PO QID 7 days #28 caps 03/08/24 sulfamethoxazole 800 1 tab PO BID 7 days #14 tabs 03/08/24 mg-trimethoprim 160 mg tablet (Bactrim DS) Allergies Allergy/AdvReac Type Severity Reaction Status Date / Time No Known Allergies Allergy Verified 03/07/24 20:57 Review of Systems Review of Systems: Yes all other systems are reviewed and are negative Constitutional: Constitutional: Reports as per [facility] Past Medical History Medical History Immunity status testing Excessive drinking alcohol Smoking Other and unspecified hyperlipidemia (~03/2020) Atherosclerotic cardiovascular disease ST elevation myocardial infarction (STEMI) of inferior wall Patient denies medical problems Surgical History History of removal of cyst History of heart artery stent (~05/2020) Family History Family History Father Heart disease Mother Cancer Other Substance use disorder Social History Social History Housing: Apartment Alcohol intake: current Alcohol intake frequency: a few times a month Alcohol type: other Patient Tobacco Use Status: Never used Tobacco Tobacco use type: Cigarette e-Cigarette/Vaping Use: Never Used Substance Use Type: Marijuana service: No Current occupational status: employed 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 Cognitive needs: No Hearing needs: No Vision needs: No Physical Exam ED Vital Signs: Vital Signs - 24 hr 03/07/24 20:56 03/08/24 00:16 03/08/24 02:08 Temperature 99.1 F 98.1 F Pulse Rate 91 77 72 Respiratory Rate 18 18 16 Blood Pressure 125/92 H 120/71 140/81 H Pulse Oximetry 99 97 97 Oxygen Delivery Method Room Air Room Air Room Air 03/08/24 04:20 03/08/24 06:00 03/08/24 08:45 Temperature 98.6 F 97.6 F 97.9 F Pulse Rate 78 57 64 Respiratory Rate 16 12 14 Blood Pressure 98/54 L 117/82 114/69 Pulse Oximetry 97 99 100 Oxygen Delivery Method Room Air Room Air Room Air BMI result Body Mass Index 27.2 Const General: cooperative, comfortable and no acute distress Orientation/consciousness: patient oriented x3 Limitations: no limitations HENMT Head: Yes normal to inspection, Yes normocephalic and Yes atraumatic Ears: hearing grossly normal bilaterally General nose exam: Normal external nose present Face and sinus: Yes normal facial exam Mouth: Normal oral and palatal mucosa present, oropharynx normal and moist mucous membranes Throat: Yes posterior oropharynx normal Eyes General: appearance normal, both eyes and all related structures Eyelids: Yes eyelids normal Conjunctivae: conjunctivae normal Sclerae: sclerae normal Pupils: Equal, round and reactive pupils present EOM: EOMs intact bilaterally Neck Neck: Yes normal visual inspection, Yes full ROM and Yes no lymphadenopathy Lymphatic: no lymphadenopathy noted Chest Chest palpation & inspection: normal inspection of the chest Resp Effort & Inspection: normal respiratory effort and able to speak in complete sentences Auscultation: clear to auscultation bilaterally, no crackles, no rales, no rhonchi and no wheezes Cardio Rate: regular rate Rhythm: regular rhythm Heart sounds: S1 normal heart sound present and S2 normal heart sound present GI Inspection: Yes normal to inspection Skin Other: Left foot dorsal aspect, there is a 4 x 3 area of erythema and warmth, nontender, yellow drainage noted from the area. General skin exam: no rashes or lesions noted Trauma: no lacerations or abrasions Wounds: no wounds Neuro General: patient oriented x3 and moves all extremities Cranial nerves: Yes Equal, round and reactive pupils present Extrem General: Yes normal to inspection Right upper extremity: normal to inspection Left upper extremity: normal to inspection Right lower extremity: normal to inspection Left lower extremity: normal to inspection Course Course Course Narrative: RME, this is a rapid medical exam performed by Nico Menezes please refer to primary provider for complete H&P- 43-year-old male presents for evaluation of a wound/infection on his left foot. This is his 3rd visit in the last 3 weeks for similar complaints. He reports having an allergic reaction to the antibiotics he was initially started on and then was given a fungal treatment without any improvement. He has an erythematous draining wound to the dorsal surface of his left foot. Plan for labs including blood cultures Medications Administered Discontinued Medications Generic Name Dose Route Start Last Admin Trade Name Freq PRN Reason Stop Dose Admin Cephalexin HCl 500 mg 03/08/24 08:32 03/08/24 09:54 Cephalexin 500 Mg Capsule PO 03/08/24 08:33 500 mg ONCE ONE Administration Trimethoprim/Sulfamethoxazole 1 tab 03/08/24 08:32 03/08/24 09:54 Sulfamethox/Trimeth 800/160 Tablet PO 03/08/24 08:33 1 tab ONCE ONE Administration Medical Decision Making Medical Decision Making [facility] Narrative: This is a 43-year-old male who presents emergency department with complaints of left foot woundx 2 weeks. On arrival, vital signs within normal limits. Patient has had ongoing wound which has been treated with Keflex and doxycycline which he completed without any relief. Will obtain x-ray to rule out any osseous underlying infection. Given failure of outpatient antibiotic use, considered admission for IV antibiotics. Will continue to closely monitor pending workup. He has no leukocytosis, stable H&H, chemistry within normal limits. No electrolyte derangement. Blood cultures were also performed. Lactic acid 1.7. Discussed with my attending physician, who recommends starting on Bactrim DS, and another course of Keflex given wound culture from last visit. I also called and spoke to wound care who will arrange outpatient follow up for patient. Discussed this with patient who is in agreement. Given return precautions. Stable for d/c. Differential Diagnosis Differential Diagnoses: The differential diagnosis associated with the presentation includes Cellulitis, abrasion, laceration, fungal infection, osteomyelitis-unlikely Admission/Observation Consideration of admission/observation: Escalation of care including admission/observation considered Lab Data [facility] Lab Attestation statement: I reviewed the patient's lab results. See [facility] 03/07/24 21:39 03/07/24 21:39 Labs: Lab Results 03/07/24 Range/Units 21:39 WBC 4.3 L (4.8-10.8) X10*3/uL RBC 4.62 (4.60-5.80) X10*6/uL Hgb 13.2 L (14.0-18.0) g/dl Hct 41.1 L (42.0-52.0) % MCV 89.0 (80.0-98.0) fL MCH 28.6 (27.0-33.0) pg MCHC 32.1 (31.0-36.0) g/dl RDW 15.1 (11.0-16.0) % Plt Count 203 (160-400) X10*3/uL MPV 9.9 (9.4-12.4) fL Immature Gran % (Auto) 0.7 H (0.0-0.4) % Neut % (Auto) 37.7 L (45-73) % Lymph % (Auto) 40.4 H (20-40) % [place] % (Auto) 15.4 H (2-11) % Eos % (Auto) 4.9 H (0-4) % Baso % (Auto) 0.9 (0-2) % Lymph # (Auto) 1.7 (1.2-4.9) X10*3/uL [place] # (Auto) 0.7 (0.1-1.2) X10*3/uL Eos # (Auto) 0.2 (0.0-0.4) X10*3/uL Baso # (Auto) 0.0 (0.0-0.2) X10*3/uL Abs Immat Gran (auto) 0.03 (0.00-0.03) X10*3/uL Absolute Neuts (auto) 1.6 L (2.0-8.3) x10*3/uL Absolute Nucleated RBC 0.000 (0.0-0.012) X10*3/uL Nucleated RBC % (auto) 0.0 (0.0-0.2) /100WBC ESR 2 (0-15) MM/HR Sodium 143 (135-145) mmol/L Potassium 3.8 (3.3-5.1) mmol/L Chloride 107 (96-108) mmol/L Carbon Dioxide 28 (22-29) mmol/L Anion Gap 12 (12-20) BUN 15 (9-16) mg/dL Creatinine 1.01 (0.5-1.4) mg/dL Estim Creat Clear Calc 110.3 Estimated GFR > 60 Random Glucose 97 (60-115) mg/dL Lactic Acid 1.7 (0.5-2.0) mmol/L Calcium 9.1 (8.4-10.2) mg/dL Total Bilirubin 0.4 (0.0-1.0) mg/dL AST 26 (5-37) U/L ALT 31 (0-40) U/L Alkaline Phosphatase 73 (39-117) U/L C-Reactive Protein < 0.04 (< or = 0.50) mg/dL Total Protein 7.9 (6.5-8.0) g/dL Albumin 4.6 (3.5-5.0) g/dL Lipase 24 (8-78) U/L Radiology Impression Discussion of test interpretation with radiology: I have reviewed the radiologist's reading. Radiologist Impression: XR/XR foot LT min 3V IMPRESSION: No acute findings left foot. Electronically signed by: Haile Ryan MD 03/08/2024 08:57 AM EST Dictated By: Haile Ryan MD Discharge Plan Discharge Clinical Impression: Wound of foot Patient Disposition: Home, Self-Care Instructions: Acute Wounds (ED) Additional Instructions: You were seen in the emergency department due to a wound. We put you on 2 different antibiotic. Take as prescribed. Throw away your shoes as this can be triggering your wound to not heal. Leave open to air for several hours a day. I called the wound care center, they will call you with an appointment. If any new or worsening symptoms occur including but not limited to worsening redness, swelling, fevers, chills, please return for re-evaluation. Prescriptions: New sulfamethoxazole-trimethoprim [Bactrim DS] 800-160 mg tablet 1 tab PO BID 7 Days Qty: 14 0RF cephalexin 500 mg capsule 500 mg PO QID 7 Days Qty: 28 0RF No Action nitroglycerin 0.4 mg tablet, sublingual 0.4 mg sublingual Q5M PRN (Reason: angina) 30 Days Qty: 60 0RF Rx Instructions: Three doses max within 15 minutes lisinopril 5 mg tablet 5 mg PO DAILY Qty: 90 3RF metoprolol succinate 25 mg tablet extended release 24 hr 25 mg PO DAILY Qty: 90 3RF aspirin [Adult Aspirin Regimen] 81 mg tablet,delayed release (DR/EC) 81 mg PO DAILY Qty: 90 3RF atorvastatin 80 mg tablet 80 mg PO BEDTIME Qty: 90 3RF doxycycline monohydrate 100 mg capsule 100 mg PO BID Qty: 14 0RF prednisone 5 mg tablet 5 mg PO DIRECTED Qty: 66 0RF Rx Instructions: Eleven tablets by mouth for 1 day, then 10 tablets by mouth for 1 day, then 9 tablets by mouth for 1 day, continue to take 1 tablet less per day until done. cephalexin 500 mg capsule 500 mg PO TID Qty: 21 0RF mupirocin 2 % ointment 1 appl topical DAILY Qty: 50 0RF valacyclovir 500 mg tablet 500 mg PO DAILY Qty: 90 3RF Referrals: [facility] Wound Care Management [Provider Group] Stand Alone Forms: Work/School Release Interventions: ED Discharge Assessment Last Done: 03/08/24 10:45 Discharge Date/Time: 03/08/24 10:45 Print Language: [place]
[2024-03-07 21:58] LABS: MANUAL DIFF FLAG NO
[2024-03-07 22:00] LABS: Basophils Percent Auto 0.9 % (0-2); Eosinophils Absolute Auto 0.2 X10*3/uL (0.0-0.4); Eosinophils Percent Auto 4.9 % (0-4); Hematocrit 41.1 % (42.0-52.0); Hemoglobin 13.2 g/dl (14.0-18.0); Imm Gran Abs Auto 0.03 X10*3/uL (0.00-0.03); Imm Gran Pct Auto 0.7 % (0.0-0.4); Lymphocytes Absolute Auto 1.7 X10*3/uL (1.2-4.9); Lymphocytes Percent Auto 40.4 % (20-40); Mean Corpuscular HGB Conc 32.1 g/dl (31.0-36.0); Mean Corpuscular Hemoglobin 28.6 pg (27.0-33.0); Mean Platelet Volume 9.9 fL (9.4-12.4); Monocytes Absolute Auto 0.7 X10*3/uL (0.1-1.2); Monocytes Percent Auto 15.4 % (2-11); Neutrophils Absolute Auto 1.6 x10*3/uL (2.0-8.3); Neutrophils Percent Auto 37.7 % (45-73); Platelet Count 203 X10*3/uL (160-400); Red Blood Count 4.62 X10*6/uL (4.60-5.80); Red Cell Distribution Width 15.1 % (11.0-16.0); White Blood Count 4.3 X10*3/uL (4.8-10.8)
[2024-03-07 22:20] LABS: Lactic Acid 1.7 mmol/L (0.5-2.0)
[2024-03-07 22:28] LABS: Alanine Aminotransferase 31 U/L (0-40); Albumin Level 4.6 g/dL (3.5-5.0); Alkaline Phosphatase 73 U/L (39-117); Anion Gap 12 (12-20); Aspartate Amino Transferase 26 U/L (5-37); Bilirubin Total 0.4 mg/dL (0.0-1.0); Blood Urea Nitrogen 15 mg/dL (9-16); C Reactive Protein < 0.04 mg/dL (< or = 0.50); Calcium 9.1 mg/dL (8.4-10.2); Carbon Dioxide 28 mmol/L (22-29); Chloride 107 mmol/L (96-108); Creatinine Clr Calc Pharmacy 110.3; Estimated Glomerular Filt Rate > 60; Glucose Random 97 mg/dL (60-115); Lipase 24 U/L (8-78); Potassium 3.8 mmol/L (3.3-5.1); Sodium 143 mmol/L (135-145); Total Protein 7.9 g/dL (6.5-8.0)
[2024-03-07 23:05] LABS: Erythrocyte Sedimentation Rate 2 MM/HR (0-15)
[2024-03-08 00:16] VITALS: BP 120/71; PULSE 77; RESP 18; TEMP 37.3; O2SAT 97
[2024-03-08 02:08] VITALS: BP 140/81; PULSE 72; RESP 16; TEMP 36.7; O2SAT 97
[2024-03-08 04:20] VITALS: BP 98/54; PULSE 78; RESP 16; TEMP 37; O2SAT 97
[2024-03-08 06:00] VITALS: BP 117/82; PULSE 57; RESP 12; TEMP 36.4; O2SAT 99
[2024-03-08 08:45] VITALS: BP 114/69; PULSE 64; RESP 14; TEMP 36.6; O2SAT 100
[2024-03-08] MEDS: cephALEXin 500 MG CAPSULE PO (09:54)
[2024-03-08] MEDS: Sulfamethox/Trimeth 800/160 TABLET 1 TAB PO (09:54)
[2024-03-08 10:45] VITALS: BP 114/69; PULSE 64; RESP 14; TEMP 36.6; O2SAT 100
== END 2024-03-08 10:45 | disposition home or self-care (01) ==
PROVIDERS: Physician Assistant; Emergency Provider Emergency Medicine; PCP Internal Medicine
DX: S91.302A Unspecified open wound, left foot, initial encounter (principal); X58.XXXA Exposure to other specified factors, initial encounter; M79.672 Pain in left foot; Y93.9 Activity, unspecified; Y92.9 Unspecified place or not applicable; Y99.9 Unspecified external cause status
CPT/HCPCS: 36415; 73630; 80053; 83605; 83690; 85025; 85652; 86140; 87040; 99283; 99284

== ENCOUNTER → 2024-03-08 06:39 | Outpatient (BNV) | payer SELFPAY | PROVIDERS: Emergency Provider Emergency Medicine; PCP Internal Medicine; Visit Provider Radiology Diagnostic Radiology | DX: M79.672 Pain in left foot (principal) | CPT/HCPCS: 73630 ==

== ENCOUNTER 2024-04-01 11:21 | Outpatient (RCR) | payer OTHER, SELFPAY | END 2024-05-06 13:51 | disposition home or self-care (01) | LOC: HO.WCC 11:21 | PROVIDERS: PCP Internal Medicine; Visit Provider Colon & Rectal Surgery | DX: L23.89 Allergic contact dermatitis due to other agents (principal); I10 Essential (primary) hypertension; I25.2 Old myocardial infarction; S91.302A Unspecified open wound, left foot, initial encounter; S91.301A Unspecified open wound, right foot, initial encounter; X58.XXXA Exposure to other specified factors, initial encounter; Y93.9 Activity, unspecified; Y92.9 Unspecified place or not applicable; Y99.9 Unspecified external cause status; Z79.899 Other long term (current) drug therapy | CPT/HCPCS: 97597; 99212; 99213 ==

== ENCOUNTER 2024-04-03 09:19 | Outpatient (AMB) | payer OTHER, SELFPAY ==
--- NOTE | 2024-04-03 09:20 | A.OFFPC_ITS ---
Vital Signs 04/03/24 09:21 Height 6 ft 3 in Weight 214 lb 6 oz BMI 26.8 BP 112/70 Respiration 14 Pulse 70 Pulse Oximetry (%) 99 Intake Visit Reasons: Personal concerns Allergies No Known Allergies Allergy (Verified 04/03/24 09:21) Medication List - Last Reconciled 04/03/24 by Ben Simon MD aspirin (Adult Aspirin Regimen) 81 mg PO DAILY atorvastatin 80 mg PO BEDTIME lisinopril 5 mg PO DAILY metoprolol succinate ER 25 mg PO DAILY mupirocin 2% 1 appl topical DAILY nitroglycerin 0.4 mg sublingual Q5M PRN 30 days valacyclovir 500 mg PO DAILY Tobacco use date assessed: 04/03/24 Dental Screening Dental Screen Date: 04/03/24 Did you have a dental visit in the last 12 months?: Yes Did you have a dental problem in the last 6 months where you did not have access to dental care?: No Was dental information given to patient?: Patient has dentist HPI Personal concerns HPI Details - The patient is a 44-year-old male pres enting with a plantar wart and associated wound on the left foot. - Patient had been seen at the wound car e center , wound dorsal aspect of left foot is healing - Complaints of pain and discomfort whil e walking due to wart - Generalized skin rash: - Rash appeared over the body approximately four days ago. - Itchiness present without accompanying fever or chills. Problem List - Plantar wart with Associated Wound isabell samara aspect on Left Foot - Generalized Skin Rash Patient Instructions - Arrange an appointment with a foot spe cialist for further evaluation of the plantar corn and wound. - Visit a special needs librarian for evaluation o f the generalized skin rash. - Use the prescribed medication for itch ing as needed; caution it may cause drowsiness. - If no contact from specialists by the end of next week, follow up appropriately. Review of Systems - Dermatological: Reports generalized sk in rash with pruritus lasting four days. - Constitutional: Denies fever or chills . - Neurological: No headaches no dizziness - Ear nose throat: No sore throat no hearing difficulty no ear pain - Cardiovascular: No syncope, no chest pain, no palpitations - Gastrointestinal: No nausea vomiting or diarrhea - Endocrine: No polyuria polydipsia no heat intolerance - Genitourinary: No dysuria , no blood in urine Physical Exam General: No acute distress HEENT: No acute findings Neck: Supple Respiratory system: Able to talk in full sentences, no audible wheeze cardiovascular: S1-S2 regular in rate and rhythm Gastrointestinal: No pain Extremities: Large wart on the bottom of the left foot close to heal, dorsal aspect of left foot covered with bandage [employer]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: Alert awake oriented x3 motor sensory intact Skin: Rash present, itchy, bumps over the body, appears older than four days, spreading Papular discrete rash PFSH Medical History Immunity status testing Excessive drinking alcohol Smoking Other and unspecified hyperlipidemia (~03/2020) Atherosclerotic cardiovascular disease ST elevation myocardial infarction (STEMI) of inferior wall Patient denies medical problems Surgical History History of removal of cyst History of heart artery stent (~05/2020) Family History Father Heart disease Mother Cancer Other Substance use disorder Social History Housing: Apartment Alcohol intake: current Alcohol intake frequency: a few times a month Alcohol type: other Patient Tobacco Use Status: Never used Tobacco Tobacco use type: Cigarette e-Cigarette/Vaping Use: Never Used Substance Use Type: Marijuana service: No Current occupational status: employed 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 1. Little interest or pleasure in doing things: not at all 2. Feeling down, depressed, or hopeless: not at all 3. Trouble falling or staying asleep, or sleeping too much: not at all 4. Feeling tired or having little energy: not at all 5. Poor appetite or overeating: not at all 6. Feeling bad about yourself - or that you are a failure or have let yourself or your family down: not at all 7. Trouble concentrating on things, such as reading the newspaper or watching television: not at all 8. Moving or speaking so slowly that other people could have noticed. Or the opposite - being so fidgety or restless that you have been moving around a lot more than usual: not at all 9. Thoughts that you would be better off or of hurting yourself in some way: not at all Total score: 0 Depression Screening Interpretation: Negative Depression Screening Done: Yes 54191 - PHQ-9 Billing: Yes Source: Developed by Drs. Valentino Holcomb, Sharon Hurley, Evan Koenig and colleagues, with an educational olayinka from [employer]. Thrive Questionnaire Date Thrive assessed: 04/03/24 I am a: Patient What is your living situation today?: I have a steady place to live Within the past 12 months, did the food you bought not last and you didn't have the money to get more?: Never true Within the past 12 months, did you worry whether your food would run out before you got money to buy more?: Never true Do you have trouble paying for medicines?: No Do you have trouble getting transportation to medical appointments?: No Do you have trouble paying your heating and electricity bill?: No Do you have trouble taking care of your child, family member or friend?: No Do you have trouble with day-to-day activities such as bathing, preparing meals, shopping, managing finances, etc.?: No Are you currently unemployed and looking for a job?: No Are you interested in more education?: No Please select the resources that you would like help with: None Currently or been in a relationship where the following occur: No concerns reported and I choose not to answer THRIVE Score: 0 AUDIT C Alcohol Use Questionnaire (AUDIT-C) 1. How often do you have a drink containing alcohol?: 2-3 times a week 2. How many drinks containing alcohol do you have on a typical day when you are drinking?: 1 or 2 3. How often do you have six or more drinks on one occasion?: Never Total Score: 3 Score Reviewed/Action Taken: Yes ANAID-7 AMB Questionnaire ANAID-7 Date ANAID - 7 assessed: 04/03/24 Feeling nervous, anxious, or on edge: 0 = Not at all Not being able to stop or control worryin = Not at all Worrying too much about different things: 0 = Not at all Trouble relaxin = Not at all Being so restless that it is hard to sit still: 0 = Not at all Becoming easily annoyed or irritable: 0 = Not at all Feeling afraid as if something awful might happen: 0 = Not at all Total ANAID-7 score (0-4 normal; 5-9 mild; 10-14 moderate; 15-21 severe): 0 Source: Developed by Drs. Valentino Holcomb, Sharon Hurley, Evan Koenig and colleagues, with an educational olayinka from [employer]. ANAID-7 Assessment Billing ANAID-7 Assessment Tool: ANAID-7 Assessment 07843 Physical exam (Primary Care) Vital Signs: Last Vital Signs Pulse 70 04/03/24 09:21 Resp 14 04/03/24 09:21 BP 112/70 04/03/24 09:21 Pulse Ox 99 04/03/24 09:21 BMI result Body Mass Index 26.8 Tobacco/Smoking Status: Tobacco use Status Tobacco use date assessed 04/03/24 04/03/24 09:27 Patient Tobacco Use Status Never used Tobacco 04/03/24 09:22 Tobacco use type Cigarette 04/03/24 09:22 e-Cigarette/Vaping Use Never Used 04/03/24 09:22 PHQ-9: PHQ-9 Score PHQ-9: Total score 0 04/03/24 09:29 Depression Screening Interpretation: Negative Thrive Assessment: Date of Thrive Assessment Date Thrive assessed 04/03/24 04/03/24 09:27 Currently or been in a relationship where the following occur: No concerns reported and I choose not to answer Coding Level of Care Code Est Pt Level 3 (96792) Complex EM visit Add On G2211 Diagnoses Pruritic dermatitis L30.8 Plantar wart of left foot B07.0 Additional Codes ANAID-7 Assessment Billing - ANAID-7 Assessment Tool: ANAID-7 Assessment 25218 ([id number]) PHQ-9 - 12796 - PHQ-9 Billing: Yes ([id number]) Assessment & Plan Assessment & Plan (1) Pruritic dermatitis: Code(s): L30.8 - Other specified dermatitis Category: Medical (2) Plantar wart of left foot: Code(s): B07.0 - Plantar wart Category: Medical Plan - The patient is a 44-year-old male presenting with a plantar wart and associated wound on the left foot. - Patient had been seen at the wound care center , wound dorsal aspect of left foot is healing - Complaints of pain and discomfort while walking due to wart - Generalized skin rash: - Rash appeared over the body approximately four days ago. - Itchiness present without accompanying fever or chills. Problem List - Plantar wart with Associated Wound dorsal aspect on Left Foot - Generalized Skin Rash Patient Instructions - Arrange an appointment with a solar sales specialist for further evaluation of the plantar corn and wound. - Visit a special needs librarian for evaluation of the generalized skin rash. - Use the prescribed medication for itching as needed; caution it may cause drow siness. - If no contact from specialists by the end of next week, follow up appropriately. Orders: Referrals Dermatology Referral L30.8 - Other specified dermatitis Podiatry Referral B07.0 - Plantar wart Medications: New hydroxyzine HCl 50 mg PO BEDTIME 30 tabs 0RF rash
[2024-04-03 09:21] VITALS: BP 112/70; PULSE 70; RESP 14; O2SAT 99; BMI 26.8
== END 2024-04-03 10:07 | disposition home or self-care (01) ==
LOC: HO.HMCC 09:19
PROVIDERS: PCP Internal Medicine; Visit Provider Internal Medicine
DX: L30.8 Other specified dermatitis (principal); B07.0 Plantar wart

== ENCOUNTER → 2024-04-03 09:19 | Outpatient (BNVA) | payer OTHER, SELFPAY | PROVIDERS: PCP Internal Medicine; Visit Provider Internal Medicine | DX: L30.8 Other specified dermatitis (principal); B07.0 Plantar wart | CPT/HCPCS: 96127; 99212 ==

== ENCOUNTER 2024-08-08 20:16 | Observation (INO) | payer OTHER, SELFPAY ==
[2024-08-08 20:18] VITALS: BP 132/83; PULSE 77; RESP 20; TEMP 36.4; O2SAT 98; BMI 25.0
--- NOTE | 2024-08-08 20:18 | ED_ITS ---
HPI - Allergic Reaction General Chief complaint: Allergic Reaction Stated complaint: allergic reaction Time Seen by Provider: 08/08/24 20:47 Source: patient Mode of arrival: ambulatory Limitations: no limitations History of Present Illness ED Provider: HPI narrative: Patient's history of hypertension and coronary artery disease on lisinopril noticed swelling of the both upper and lower lips since earlier today got worse during the day never had similar reaction in the past denies any difficulty in breathing or swallowing swelling localized to the both upper and lower lips jermain ent took Benadryl prior to arrival without much relief Related Data Previous Rx's ?Medication ?Instructions ?Recorded nitroglycerin 0.4 mg sublingual 0.4 mg sublingual Q5M PRN angina 07/14/21 tablet 30 days #60 tabs lisinopril 5 mg tablet 5 mg PO DAILY #90 tabs 09/27/23 metoprolol succinate 25 mg 25 mg PO DAILY #90 tabs 09/27/23 tablet,extended release 24 hr aspirin 81 mg tablet,delayed 81 mg PO DAILY #90 tabs 10/05/23 release (Adult Aspirin Regimen) atorvastatin 80 mg tablet 80 mg PO BEDTIME #90 tabs 10/05/23 mupirocin 2 % topical ointment 1 appl topical DAILY #50 grams 02/18/24 hydroxyzine HCl 50 mg tablet 50 mg PO BEDTIME rash #30 tabs 04/03/24 valacyclovir 500 mg tablet 500 mg PO DAILY #90 tabs 08/07/24 Allergies Allergy/AdvReac Type Severity Reaction Status Date / Time ciprofloxacin [From Cipro] Allergy Intermediate swollen Verified 08/09/24 00:08 lips lisinopril Allergy Intermediate swollen Uncoded 08/09/24 00:08 lips Review of Systems Review of Systems: Yes all other systems are reviewed and are negative REPLACED BY [facility] Past Medical History Medical History Immunity status testing Excessive drinking alcohol Smoking Other and unspecified hyperlipidemia (~03/2020) Atherosclerotic cardiovascular disease ST elevation myocardial infarction (STEMI) of inferior wall Patient denies medical problems Surgical History History of removal of cyst History of heart artery stent (~05/2020) Family History Family History Father Heart disease Mother Cancer Other Substance use disorder Social History Social History Housing: Apartment Alcohol intake: current Alcohol intake frequency: a few times a month Alcohol type: other Patient Tobacco Use Status: Never used Tobacco Tobacco use type: Cigarette Smoked in Last 30 Days: No e-Cigarette/Vaping Use: Never Used Use of substances other than those prescribed or required for medical reasons: No Substance Use Type: Marijuana Advance Directives: No Advance Directives Information Provided: Yes Nutrition Risks: No Nutritional Risk service: No Current occupational status: employed 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 Oriented X3. No acute distress. Eyes: PERRLA, No Nystagmus ENT: Pharynx normal. Oral Mucosa moist significant swelling of both upper and lower lips no tongue involvement no uvula involvement no stridor Neck: Normal inspection. Neck supple. CVS: Normal heart rate and rhythm. Pulses normal. Respiratory: No respiratory distress. Equal air entry bilateral, no wheezing/rales/rhonchi Abdomen: Soft and nontender. Bowel sounds are present, Skin: Skin warm and dry. Normal skin color. Normal skin turgor. Extremities: No lower extremity edema. No calf tenderness Neuro: Oriented X 3. Course Course Course Narrative: This is an RME: Additional HPI, ROS, PE not included below will be deferred to primary provider. RME assessment and note performed by: Katya Chaney PA-C Patent states he started ciproflxacin for UTI on Saturday 08/05 and noticed swelling of his lips and L cheek around noon today. He reports he took Benadryl today around 2:00 p.m. with minimal effect. He denies difficulty breathing. PE: obvious swelling to lips and L lower face. No difficulty breathing,Lungs CTA B/L. Uvula midline, no uvula edema, no sublingual or submental swelling. Airway patent. In no acute distress. Plan: Orders in for benadryl, solu medrol, famotidine Medications Administered Discontinued Medications Generic Name Dose Route Start Last Admin Trade Name Fouzia PRN Reason Stop Dose Admin Diphenhydramine HCl 50 mg 08/08/24 20:23 08/08/24 20:33 Diphenhydramine Hcl 50 Mg/Ml Vial IVPUSH 08/08/24 20:24 50 mg ONCE ONE Administration Diphenhydramine HCl 25 mg 08/08/24 23:19 08/08/24 23:22 Diphenhydramine Hcl 50 Mg/Ml Vial IVPUSH 08/08/24 23:20 25 mg ONCE ONE Administration Famotidine 20 mg 08/08/24 20:23 08/08/24 20:33 Famotidine/Pf 20 Mg/2 Ml Vial IVPUSH 08/08/24 20:24 20 mg ONCE ONE Administration Methylprednisolone Sodium Succinate 125 mg 08/08/24 20:23 08/08/24 20:33 Methylprednisolone Sod Succ 125 Mg Vial IVPUSH 08/08/24 20:24 125 mg ONCE ONE Administration Medical Decision Making Medical Decision Making [facility] Narrative: Patient with angioedema from use of SONALI inhibitor with significant involvement of the both lips without airway compromise patient was given Benadryl steroids and Pepcid with slight improvement will admit patient for observation Discharge Plan Discharge Clinical Impression: Angioedema Patient Disposition: Admitted As Inpatient
[2024-08-08] MEDS: Famotidine/PF 20 MG/2 ML VIAL IVPUSH (20:33)
[2024-08-08] MEDS: diphenhydrAMINE HCL 50 MG/ML VIAL IVPUSH (20:33)
--- NOTE | 2024-08-08 20:49 | PC.NURSE ---
pt a&ox4, respirations even and unlabored. pt reports taking dose of ceftin today and developing swollen lips. at this time, pt states he started his dose on monday. pt noted to have very swollen lips and some hives on the bilateral arms. 18g placed in left ac and medicated per may. pt able to speak in full clear sentences, vss.
--- NOTE | 2024-08-08 23:16 | PC.NURSE ---
pt lips noted to still be swollen at this time, dr velasco aware
[2024-08-08 23:22] VITALS: BP 122/79; PULSE 67; RESP 18; TEMP 37.2; O2SAT 99
[2024-08-08] MEDS: diphenhydrAMINE HCL 50 MG/ML VIAL 25 MG IVPUSH (23:22)
--- NOTE | 2024-08-09 00:16 | P.HPHOSP_ITS ---
History of Present Illness Date of Service: 08/08/24 Attending physician on admission: Marva Wood Chief Complaint: Swollen lips Marina Gibson is a 44 years old man with past medical history significant for CAD, essential hypertension and hyperlipidemia [facility] complaining of swollen lips since this morning. He denied any rash, cough, swollen tongue or throat, itching or shortness on breath. He has been taking a course of ciprofloxacin (already took 4 pills) for recent UTI. He takes aspirin everyday and does not have allergies to any medications. He also takes lisinopril. He has not have episodes of swollen lips. He took Benadryl at home without improvement. He denied any acute gastrointestinal symptoms such as abdominal pain, nausea, vomiting or diarrhea. He smokes marijuana and smoked tobacco in occasions. He drinks alcohol socially and denied any illicit drug use. In the ED, he was found to have normal vital signs. He blood workup showed WBC count of 4.1, hemoglobin 13.2 and normal platelets. There are no electrolyte imbalances. Renal function and liver function are normal. CRP is normal. ED tx: Solu-Medrol 125 mg IV, Benadryl 75 mg IV Toradol, famotidine 20 mg IV. Review of Systems Review of Systems: All 12 systems were reviewed and normal except as noted in HPI. [facility] Medical History Immunity status testing Excessive drinking alcohol Smoking Other and unspecified hyperlipidemia (~03/2020) Atherosclerotic cardiovascular disease ST elevation myocardial infarction (STEMI) of inferior wall Patient denies medical problems Family History Father Heart disease Mother Cancer Other Substance use disorder Surgical History History of removal of cyst History of heart artery stent (~05/2020) Social History Housing: Apartment Alcohol intake: current Alcohol intake frequency: a few times a month Alcohol type: other Patient Tobacco Use Status: Never used Tobacco Tobacco use type: Cigarette Smoked in Last 30 Days: No e-Cigarette/Vaping Use: Never Used Use of substances other than those prescribed or required for medical reasons: No Substance Use Type: Marijuana Advance Directives: No Advance Directives Information Provided: Yes Nutrition Risks: No Nutritional Risk service: No Current occupational status: employed 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 Cognitive needs: No Hearing needs: No Vision needs: No Meds Allergies Allergy/AdvReac Type Severity Reaction Status Date / Time ciprofloxacin [From Cipro] Allergy Intermediate swollen Verified 08/09/24 00:08 lips lisinopril Allergy Intermediate swollen Uncoded 08/09/24 00:08 lips Active Medications: Current Medications Acetaminophen (Acetaminophen 325 Mg Tablet) 975 mg PO Q6H PRN PRN Reason: Pain, Mild 1-3,fever,headache Sodium Chloride (0.9 % Sodium Chloride Flush 3 Ml Syringe) 3 ml IVFLUSH QSHIFT MARQUEZ Physical Exam Vital Signs and Narrative: Vital Signs: Last Vital Signs Temp 98.9 F 08/08/24 23:22 Pulse 67 08/08/24 23:22 Resp 18 08/08/24 23:22 BP 122/79 08/08/24 23:22 Pulse Ox 99 08/08/24 23:22 O2 Del Method Room Air 08/08/24 23:22 BMI result Body Mass Index 25.0 Constitutional - Awake and Alert, No apparent distress HEENT - solid lips, normal tongue and oropharynx. Heart - S1S2, RRR, No murmurs Lungs - Normal lung expansion, Normal respiratory effort, No respiratory distress, CTA bilaterally Abdomen l - NT / ND; +BS; No rebound or guarding Extremities - no calf tenderness bilaterally, no swelling Musculoskeletal - Normal inspection, normal ROM Skin - Warm/Dry Neurological - Alert & oriented x3. No focal weakness grossly noted. Normal speech. Psychological - Appropriate affect Assessment and Plan (1) Angioedema: Qualifiers: Encounter type: initial encounter Qualified Code(s): T78.3XXA - Angioneurotic edema, initial encounter Status: Acute (2) Allergic reaction caused by a drug: Qualifiers: Encounter type: initial encounter Qualified Code(s): T78.40XA - Allergy, unspecified, initial encounter Status: Acute Plan Marina Gibson is a 44 y/o man admitted with: * Swollen lips, possible SONALI inhibitor-induced angioedema and/or allergic reaction to ciprofloxacin. Tone and oropharynx are currently normal and there is no airway compromise or gastrointestinal symptoms. Observation under hospitalist service. Telemetry. Pulse oximetry. Discontinue lisinopril and ciprofloxacin. Not much response to antihistaminics and corticosteroids given in ED. Patient has been educated about immediately reporting symptoms such as cough, shortness of breath, tongue/oropharynx swelling to staff. If worsening symptoms we will transfuse fresh frozen plasma. Check C1 esterase inhibitor, C1 inhibitor protein and complements. * Essential hypertension. Continue metoprolol. Avoid lisinopril or any other SONALI inhibitor. * Hyperlipidemia. Continue statin. * Coronary artery disease. Continue aspirin and statin. DVT prophylaxis: Low risk, SCDs, early ambulation. Code status: Full Quality Stroke Does the patient have a stroke diagnosis?: No VTE Prior VTE?: No VTE Risk Level:: Medical - low VTE Device Contraindication: N/A - Device Ordered VTE Drug Contraindication: Treatment Not Indicated
--- NOTE | 2024-08-09 00:39 | PC.NURSE ---
per , take pt cipro as pt had a reaction to it. this rn contacted pharmacy and Bebe HART, medication disposed per [facility] [place].
[2024-08-09 03:30] VITALS: BP 115/73; PULSE 52; RESP 18; TEMP 36.5; O2SAT 99
[2024-08-09 05:41] LABS: Basophils Percent Auto 0.5 % (0-2); Eosinophils Percent Auto 0.5 % (0-4); Hematocrit 45.9 % (42.0-52.0); Hemoglobin 15.3 g/dl (14.0-18.0); Imm Gran Abs Auto 0.02 X10*3/uL (0.00-0.03); Lymphocytes Absolute Auto 0.3 X10*3/uL (1.2-4.9); Lymphocytes Percent Auto 13.3 % (20-40); MANUAL DIFF FLAG SCAN; Mean Corpuscular HGB Conc 33.3 g/dl (31.0-36.0); Mean Corpuscular Hemoglobin 29.3 pg (27.0-33.0); Mean Corpuscular Volume 87.9 fL (80.0-98.0); Mean Platelet Volume 11.6 fL (9.4-12.4); Monocytes Absolute Auto 0.1 X10*3/uL (0.1-1.2); Monocytes Percent Auto 3.4 % (2-11); Neutrophils Absolute Auto 1.7 x10*3/uL (2.0-8.3); Neutrophils Percent Auto 81.3 % (45-73); PLT CLUMP 1; Red Blood Count 5.22 X10*6/uL (4.60-5.80); Red Cell Distribution Width 13.8 % (11.0-16.0); SCAN SMEAR FLAG 1
[2024-08-09 06:00] VITALS: BP 118/74; PULSE 59; RESP 14; TEMP 36.4; O2SAT 96
[2024-08-09 06:01] LABS: Anion Gap 20 (12-20); Blood Urea Nitrogen 25 mg/dL (9-16); Calcium 9.8 mg/dL (8.4-10.2); Carbon Dioxide 21 mmol/L (22-29); Chloride 101 mmol/L (96-108); Creatinine Clr Calc Pharmacy 103.1; Estimated Glomerular Filt Rate > 60; Glucose Random 135 mg/dL (60-115); Potassium 4.7 mmol/L (3.3-5.1); Sodium 137 mmol/L (135-145)
[2024-08-09] MEDS: Loratadine 10 MG TABLET PO (06:04)
[2024-08-09] MEDS: diphenhydrAMINE HCL 25 MG CAPSULE 50 MG PO (06:04)
[2024-08-09] MEDS: Famotidine 20 MG TABLET 40 MG PO (06:04)
[2024-08-09 06:06] LABS: Platelet Count 176 X10*3/uL (160-400)
[2024-08-09 06:07] LABS: SLIDE REVIEW VERIFIED
--- NOTE | 2024-08-09 09:14 | PHA.MEDREC ---
Addendum entered by Jesse Villegas [facility] 08/09/24 09:25: MED REC CHECKED BY [facility] Original Note: Pharmacy Consult ? Medication Reconciliation Pharmacy has completed the medication reconciliation. Spoke to patient to confirm med list. Patient states he is no longer taking Cipro 500 mg, Hydroxyzine 50 mg, Ketoconazole 0.75% cream,and Mupirocin oint. patient last had his medications yesterday morning.
[2024-08-09] MEDS: methylPREDNISolone Sod Succ 40 MG/ML VIAL 20 MG IVPUSH (11:08)
--- NOTE | 2024-08-09 12:17 | MHC.CM.PN ---
CM met with Patient at bedside, in the ED, and addressed ETIENNE with him, providing Patient with the original and a copy will be placed on the chart. Patient lives alone in an apartment and he has his car here for transport to home, at dc. PCP is Dr. Ben Simon and Friend/Mikki is the HCP. CM has initiated and will follow for dc planning.
[2024-08-09 14:28] VITALS: BP 102/67; PULSE 63; RESP 18; O2SAT 99
[2024-08-09] MEDS: predniSONE 20 MG TABLET 40 MG PO (15:28)
[2024-08-09] MEDS: cefuroxime axetiL 250 MG TABLET PO ×2 (15:29→23:26)
--- NOTE | 2024-08-09 18:51 | P.PNIM_ITS ---
Subjective Subjective Date of Service: 08/09/24 Interval History: ? angioedema Review of Systems Lip swelling a cheek swelling slowly improving No shortness of breath Review of Systems: Yes all other systems are reviewed and are negative Physical Exam 2 Vital Signs: Vital Signs: Last Vital Signs Temp 97.6 F 08/09/24 06:00 Pulse 63 08/09/24 14:28 Resp 18 08/09/24 14:28 BP 102/67 08/09/24 14:28 Pulse Ox 99 08/09/24 14:28 O2 Del Method Room Air 08/09/24 14:28 BMI result Body Mass Index 25.0 Appearance: Alert.? Oriented X3.? Ent:lip swelling improving cvs: rrr, [id number] . res: clear to auscultation ,no rhonchii or wheezing abd: no rebound or guarding ,nt, bs present. ext pulses present , no cyanosis. neuro: axo3 , nonfocal. Objective Data Active Medications Acetaminophen (Acetaminophen 325 Mg Tablet) 975 mg PO Q6H PRN PRN Reason: Pain, Mild 1-3,fever,headache Aspirin (Aspirin Enteric Coated 81 Mg Tablet.Dr) 81 mg PO DAILY [facility] Atorvastatin Calcium (Atorvastatin Calcium 80 Mg Tablet) 80 mg PO DAILY [facility] Cefuroxime Axetil (Cefuroxime Axetil 250 Mg Tablet) 250 mg PO BID [facility] [place] Last Admin: 08/09/24 15:29 Dose: 250 mg Documented By: KRISTAL Famotidine (Famotidine 20 Mg Tablet) 40 mg PO DAILY [facility] [place] Last Admin: 08/09/24 06:04 Dose: 40 mg Documented By: MARIO Loratadine (Loratadine 10 Mg Tablet) 10 mg PO DAILY [facility] [place] Last Admin: 08/09/24 06:04 Dose: 10 mg Documented By: MARIO Metoprolol Succinate (Metoprolol Succinate Er 25 Mg Tab.Er.24h) 25 mg PO DAILY [facility]; Protocol Nitroglycerin (Nitroglycerin 0.4 Mg Tab.Subl) 0.4 mg SUBLINGUAL Q5M PRN PRN Reason: angina Prednisone (Prednisone 20 Mg Tablet) 40 mg PO DAILY [facility] [place] Last Admin: 08/09/24 15:28 Dose: 40 mg Documented By: KRISTAL Sodium Chloride (0.9 % Sodium Chloride Flush 3 Ml Syringe) 3 ml IVFLUSH QSHIFT [facility] [place] Last Admin: 08/09/24 09:50 Dose: Not Given Documented By: KRISTAL Non-Admin Reason: Unable to Scan Barcode Triamcinolone Acetonide (Triamcinolone Acet 0.5 % Oint 15 Gm Tube) 1 appl TOPICAL BID PRN PRN Reason: Rash Valacyclovir HCl (Valacyclovir Hcl 500 Mg Tablet) 500 mg PO DAILY [facility] Labs 08/09/24 05:31 08/09/24 05:31 Labs: Laboratory Results - last 24 hr 08/09/24 05:31 MCV 87.9 MCH 29.3 MCHC 33.3 RDW 13.8 Plt Count 176 MPV 11.6 Immature Gran % (Auto) 1.0 H Neut % (Auto) 81.3 H Lymph % (Auto) 13.3 L [place] % (Auto) 3.4 Eos % (Auto) 0.5 Baso % (Auto) 0.5 Lymph # (Auto) 0.3 L [place] # (Auto) 0.1 Eos # (Auto) 0.0 Baso # (Auto) 0.0 Abs Immat Gran (auto) 0.02 Absolute Neuts (auto) 1.7 L Absolute Nucleated RBC 0.000 Nucleated RBC % (auto) 0.0 Smear Tech's Comments VERIFIED Smear Path Review SEE NOTE Anion Gap 20 Estim Creat Clear Calc 103.1 Estimated GFR > 60 Random Glucose 135 H Calcium 9.8 D Assessment and Plan (1) Angioedema: Status: Acute Assessment and Plan: 44 y/o man admitted with: Swollen lips, possible SONALI inhibitor-induced angioedema and/or allergic reaction to ciprofloxacin. Tone and oropharynx are currently normal and there is no airway compromise or gastrointestinal symptoms. Telemetry. Pulse oximetry. Discontinue lisinopril and ciprofloxacin. Not much response to antihistaminics and corticosteroids given in ED. Patient has been educated about immediately reporting symptoms such as cough, shortness of breath, tongue/oropharynx swelling to staff. If worsening symptoms we will transfuse fresh frozen plasma. Check C1 esterase inhibitor, C1 inhibitor protein and complements. Patient is improving with steroids, loratadine, famotidine. Continue to monitor Essential hypertension. Continue metoprolol. Avoid lisinopril or any other SONALI inhibitor. Hyperlipidemia. Continue statin. Coronary artery disease. Continue aspirin and statin. UTI recent: Was switched to Ceftin(his record from urgent care reviewed E coli sensitive ceftriaxone.) DVT prophylaxis: Low risk, SCDs, early ambulation. Code status: Full Ongoing need of stay-angioedema improving with supportive management also reintroduce his visit antibiotic for UTI-needs to monitor for respiratory status and any allergic reaction. Quality Stroke Does the patient have a stroke diagnosis?: No VTE Prior VTE?: No VTE Risk Level:: Medical - low VTE Device Contraindication: N/A - Device Ordered VTE Drug Contraindication: Treatment Not Indicated
[2024-08-09 19:34] VITALS: BP 120/84; PULSE 57; RESP 16; TEMP 36.2; O2SAT 98
[2024-08-09 19:49] VITALS: BMI 25.1
[2024-08-09 23:45] VITALS: BP 111/64; PULSE 59; RESP 16; TEMP 36.8; O2SAT 97
[2024-08-10 03:48] VITALS: BP 118/76; PULSE 64; RESP 16; TEMP 36.4; O2SAT 98
[2024-08-10 07:07] VITALS: BP 110/73; PULSE 59; RESP 18; TEMP 36.6; O2SAT 99
[2024-08-10 08:07] LABS: Appearance Urine Clear; Color Urine Yellow; Glucose Urine UA Negative (Negative); Leukocyte Esterase Urine Negative (Negative); Nitrite Urine Negative (Negative); UMIC TRIGGER UACC YES; Urine Blood Negative (Negative); Urine Ketones Negative (Negative); Urine Protein 30 (1+) mg/dL (Neg-Trace)
[2024-08-10 08:38] LABS: Bacteria Urine None Seen (None Seen); Hyaline Casts Urine 0-2 /LPF (0-2); RBC Urine 0-2 /HPF (0-2); Squamous Epithelial Cell Urine 0-2 /HPF (0-2); UACC Culture Trigger YES
[2024-08-10 08:52] LABS: Hematocrit 41.6 % (42.0-52.0); Hemoglobin 13.7 g/dl (14.0-18.0); Mean Corpuscular HGB Conc 32.9 g/dl (31.0-36.0); Mean Corpuscular Volume 88.1 fL (80.0-98.0); Mean Platelet Volume 10.1 fL (9.4-12.4); Platelet Count 325 X10*3/uL (160-400); Red Blood Count 4.72 X10*6/uL (4.60-5.80); Red Cell Distribution Width 13.9 % (11.0-16.0); White Blood Count 9.9 X10*3/uL (4.8-10.8)
[2024-08-10] MEDS: cefuroxime axetiL 250 MG TABLET PO (09:40)
[2024-08-10] MEDS: 0.9 % Sodium Chloride Flush 3 ML SYRINGE IVFLUSH (09:40)
[2024-08-10] MEDS: Aspirin Enteric Coated 81 MG TABLET.DR PO (09:41)
[2024-08-10] MEDS: valACYclovir HCL 500 MG TABLET PO (09:41)
[2024-08-10] MEDS: Loratadine 10 MG TABLET PO (09:41)
[2024-08-10] MEDS: Famotidine 20 MG TABLET 40 MG PO (09:41)
[2024-08-10] MEDS: Atorvastatin Calcium 80 MG TABLET PO (09:41)
[2024-08-10] MEDS: predniSONE 20 MG TABLET 40 MG PO (09:41)
[2024-08-10] MEDS: Metoprolol Succinate ER 25 MG TAB.ER.24H PO (09:42)
--- NOTE | 2024-08-10 10:31 | P.DS_ITS ---
DS: Providers Provider Date of Service: 08/10/24 Date of admission: 08/08/24 23:19 Date of discharge: 08/10/24 Primary care physician: Ben Simon MD Attending physician on discharge: Boom Leon Discharging clinician: Boom Leon DS: Diagnosis Discharge Diagnosis (1) Angioedema: Status: Acute DS: Summary Hospital Course Hospital Course: HPI:44 years old man with past medical history significant for CAD, essential hypertension and hyperlipidemia presents to the emergency department complaining of swollen lips since this morning. He denied any rash, cough, swollen tongue or throat, itching or shortness on breath. He has been taking a course of ciprofloxacin (already took 4 pills) for recent UTI. He takes aspirin everyday and does not have allergies to any medications. He also takes lisinopril. He has not have episodes of swollen lips. He took Benadryl at home without improvement. He denied any acute gastrointestinal symptoms such as abdominal pain, nausea, vomiting or diarrhea. He smokes marijuana and smoked tobacco in occasions. He drinks alcohol socially and denied any illicit drug use. In the ED, he was found to have normal vital signs. He blood workup showed WBC count of 4.1, hemoglobin 13.2 and normal platelets. There are no electrolyte imbalances. Renal function and liver function are normal. CRP is normal. ED tx: Solu-Medrol 125 mg IV, Benadryl 75 mg IV Toradol, famotidine 20 mg IV. Hospital course: 44 y/o man admitted with:Swollen lips, possible SONALI inhibitor-induced angioedema and/or allergic reaction to ciprofloxacin. thought to be related to lisinopril and ciprofloxacin. patient was started on loratidine ,famotidine and iv steriods -seems feeling better lip swelling resolved ,facial swelling also improved significantly now very minimal. his testing for C1 esterase inhibitor, C1 inhibitor protein and complements sent and pending . patient improved no new symptoms and wishes to go home. plan: avoid ciprofloxacin and lisinopril due to allergy /angioedema. moniter blood pressure closely , if persistently elevated 140 mmhg and above - may need antihypertensive medication outpatient. given prednisone and loratidine as well as epipen . complete ceftin 250 mg po bid x6 more days his testing for C1 esterase inhibitor, C1 inhibitor protein and complements sent and pending -patient said will follow up outpatient with pcp. follow up with pcp for above. above managemnetd/w patient in detail, time spent 40min, staff presentduring conversation ,all questions answered. Time Attestation Total time managing care of this patient today: 40 mintues. Discharge Coordination Time (in mins): 40 min Quality: Safe Use of Opioids Does Pt have an Active Cancer Diagnosis on the Problem List?: No Quality: Stroke Does the patient have a stroke diagnosis?: No Physical Exam Vital Signs: Vital Signs: Last Vital Signs Temp 97.8 F 08/10/24 07:07 Pulse 59 08/10/24 07:07 Resp 18 08/10/24 07:07 BP 110/73 08/10/24 07:07 Pulse Ox 99 08/10/24 07:07 O2 Del Method Room Air 08/10/24 07:07 BMI result Body Mass Index 25.1 Appearance: Alert.? Oriented X3.? Ent:lip swelling improved. facial swelling minimum cvs: rrr, [id number] . res: clear to auscultation ,no rhonchii or wheezing abd: no rebound or guarding ,nt, bs present. ext pulses present , no cyanosis. neuro: axo3 , nonfocal. DS: Data Data Completed and Pending Labs on day of discharge: Laboratory Results - last 24 hr 08/10/24 08/10/24 07:41 08:04 WBC 9.9 RBC 4.72 Hgb 13.7 L Hct 41.6 L MCV 88.1 MCH 29.0 MCHC 32.9 RDW 13.9 Plt Count 325 D MPV 10.1 Absolute Nucleated RBC 0.000 Nucleated RBC % (auto) 0.0 Urine Color Yellow Urine Appearance Clear Urine pH 6.0 Ur Specific [place] 1.020 Urine Protein 30 (1+) H Urine Glucose (UA) Negative Urine Ketones Negative Urine Blood Negative Urine Nitrite Negative Ur Leukocyte Esterase Negative Urine RBC 0-2 Urine WBC 6-10 H Ur Squamous Epith Cells 0-2 Urine Bacteria None Seen Hyaline Casts 0-2 Discharge Plan Discharge Anticipated Discharge Date/Time: 08/10/24 10:21 Patient Disposition: Home, Self-Care Discharge Diagnosis: angioedema Referrals: Ben Simon MD [Primary Care Provider] - 1 Week Discharge Medications: New cefuroxime axetil 250 mg Tablet 250 mg PO BID Qty: 12 0RF loratadine 10 mg Tablet 10 mg PO DAILY Qty: 10 0RF prednisone 20 mg Tablet 40 mg PO DAILY Qty: 8 0RF epinephrine [EpiPen 2-Aurelio] 0.3 mg/0.3 mL auto-injector 0.3 mg IM Q10M PRN (Reason: anaphylaxis) Qty: 2 0RF Rx Instructions: for 2 doses Continued nitroglycerin 0.4 mg tablet, sublingual 0.4 mg sublingual Q5M PRN (Reason: angina) 30 Days Qty: 60 0RF Rx Instructions: Three doses max within 15 minutes metoprolol succinate 25 mg tablet extended release 24 hr 25 mg PO DAILY Qty: 90 3RF aspirin [Adult Aspirin Regimen] 81 mg tablet,delayed release (DR/EC) 81 mg PO DAILY Qty: 90 3RF valacyclovir 500 mg tablet 500 mg PO DAILY Qty: 90 0RF triamcinolone acetonide 0.5 % ointment 1 appl topical BID PRN (Reason: Rash) Rx Instructions: APPLY 2 GRAMS OF OINTMENT TOPICALLY TO AFFECTED AREAS ON BACK AND CHEST TWICE DAILY FOR 2 WEEKS, BREAK FOR 1 WEEK, THEN REPEAT NEEDED atorvastatin 80 mg tablet 80 mg PO DAILY Discontinued lisinopril 5 mg tablet 5 mg PO DAILY Qty: 90 3RF Discharge Orders: Discharge Order (Routine); Ordered 08/10/24 Ordered By: Boom Leon Diet: Advance to usual diet Activity on Discharge: As tolerated Stand Alone Forms: Patient Portal Discharge page Print Language: Frisian Care Plan Goals: as below. Health Concerns: avoid ciprofloxacin and lisinopril due to allergy /angioedema. moniter blood pressure closely , if persistently elevated 140 mmhg and above - may need antihypertensive medication outpatient. his testing for C1 esterase inhibitor, C1 inhibitor protein and complements sent and pending -patient said will follow up outpatient with pcp. given prednisone and loratidine as well as epipen . complete ceftin 250 mg po bid x6 more days follow up with pcp for above. Plan of Treatment: as above. Assessment: as above. Patient Instructions: Cefuroxime (By mouth) (Ceftin), Prednisone (By mouth), Loratadine/Pseudoephedrine (By mouth), Epinephrine (By injection) (Adrenaclick, Adrenalin, EpiPen,... Discharge Date/Time: 08/10/24 13:15
[2024-08-10 11:15] VITALS: BP 106/67; PULSE 72; RESP 18; TEMP 36.1; O2SAT 98
--- NOTE | 2024-08-10 12:49 | MHC.CM.PN ---
PT WILL DC HOME TODAY WITH NO SERVICES VIA PRIVATE TRANSPORT
[2024-08-12 13:14] LABS: Complement C3 244 mg/dL (82-185)
[2024-08-12 22:18] LABS: C1 Esterase Inhibitor >100 % (>=68)
[2024-08-16 14:54] LABS: C1q Antibody IgG <1 RU/mL (<26)
[2024-08-17 17:54] LABS: C1Q Complement Component 8.5 mg/dL (5.0-8.6)
== END 2024-08-10 13:15 | disposition home or self-care (01) ==
LOC: HO.ED 20:59 → HO.EDOVER 23:25 → HO.IMC 08-09 17:38
PROVIDERS: Admitting Provider Internal Medicine; Emergency Provider Internal Medicine; PCP Internal Medicine; Visit Provider Internal Medicine
DX: T78.3XXA Angioneurotic edema, initial encounter (principal); K13.0 Diseases of lips; T36.8X5A Adverse effect of other systemic antibiotics, initial encounter; Y84.8 Other medical procedures as the cause of abnormal reaction of the patient, or of later complication, without mention of misadventure at the time of the procedure; Y92.9 Unspecified place or not applicable; I25.2 Old myocardial infarction; I10 Essential (primary) hypertension; I25.10 Atherosclerotic heart disease of native coronary artery without angina pectoris; E78.5 Hyperlipidemia, unspecified; Z87.440 Personal history of urinary (tract) infections; Z79.899 Other long term (current) drug therapy
CPT/HCPCS: 36415; 80048; 81001; 81003; 83516; 85025; 85027; 86160; 86161; 87086; 96374; 96375; 96376; 99222; 99285; J1200; J1308; J2919

== ENCOUNTER → 2024-08-08 23:19 | Outpatient (BNV) | payer OTHER, SELFPAY | PROVIDERS: Admitting Provider Internal Medicine; Emergency Provider Internal Medicine; PCP Internal Medicine; Visit Provider Internal Medicine | DX: T78.3XXA Angioneurotic edema, initial encounter (principal) | CPT/HCPCS: 99222; 99239; 99499 ==

== ENCOUNTER 2024-09-24 11:21 | Outpatient (AMB) | payer OTHER, SELFPAY ==
--- NOTE | 2024-09-24 11:23 | MHC.OFFVIS ---
Intake Visit Reasons: hematuria Intake Note: New Patient is present for hematuria Urology Rx: none Blood Thinners:asprin Accompanied by: Self / Same As Patient Allergies ciprofloxacin (From Cipro) Allergy (Intermediate, Verified 09/24/24 11:30) swollen lips lisinopril Allergy (Intermediate, Uncoded 08/09/24 00:08) swollen lips HPI Comments Details: Marina is a pleasant male. He is a patient of Dr. Simon. He seen for the following urologic conditions - microscopic hematuria Prior hematuria UA today trace blood Smoker - marijuana Dehydrated based on UA Follow-up six-month repeat [facility] Medical History Immunity status testing Excessive drinking alcohol Smoking Other and unspecified hyperlipidemia (~03/2020) Atherosclerotic cardiovascular disease ST elevation myocardial infarction (STEMI) of inferior wall Patient denies medical problems Surgical History History of removal of cyst History of heart artery stent (~05/2020) Family History Father Heart disease Mother Cancer Other Substance use disorder Social History Household Members: None Housing: Apartment Do you presently have visiting nurse or other home services: No Alcohol intake: current Alcohol intake frequency: a few times a month Alcohol type: other Patient Tobacco Use Status: Current someday Tobacco user Tobacco use type: Cigarette e-Cigarette/Vaping Use: Currently Using Substance Use Type: Marijuana service: No Current occupational status: employed 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 Cognitive needs: No Hearing needs: No Vision needs: No Review of Systems Const Denies chills and Denies fever(s) Card Reports no additional complaints and Denies syncope Resp Denies cough GI Denies abdominal pain and Denies heartburn Reports as per HPI and Denies change in libido Neuro Denies syncope Psych Denies change in libido Endo Denies change in libido Physical Exam Const General: cooperative, healthy appearing, comfortable and no acute distress Orientation/consciousness: patient oriented x3 HEENT Face and sinus: Yes normal facial exam Mouth: moist mucous membranes Neck Neck: Yes normal visual inspection, Yes full ROM and Yes trachea midline Chest Chest palpation & inspection: normal inspection of the chest Resp Effort & Inspection: normal respiratory effort, able to speak in complete sentences and no respiratory distress GI Inspection: Yes normal to inspection Back/Spine/Pelvis Cervical Spine: normal cervical lordosis Thoracic/Lumbar Spine: thoracic and lumbar spine normal to inspection Skin General skin exam: no rashes or lesions noted Neuro General: patient oriented x3, gait normal, tone normal and moves all extremities Extrem General: Yes normal to inspection and Yes capillary refill normal Assessment & Plan Assessment & Plan (1) Microscopic hematuria: Code(s): R31.29 - Other microscopic hematuria Category: Medical Plan Six-month follow-up UA Patient Instructions: This note is constructed using voice recognition software. While every effort has been made to ensure accuracy staff accountant errors may have been included. Imaging studies, laboratory and physical exam results were discussed and reviewed in detail. No major barriers to patient understanding were identified. An opportunity to ask questions regarding the treatment plan was provided. All questions were answered. The patient expressed understanding and agreement with the above treatment plan. The patient is aware they should contact our office by phone for worsening of their current condition or the appearance of new urologic symptoms. Compliance is encouraged with any medications and followup testing that is ordered. It is a privilege to participate in the urologic care of your patient. If you have any questions or concerns regarding treatment for the above conditions, or other urologic issues, please do not hesitate to contact me. The office telephone contact is [phone]. Sincerely, Dr Deion Matamoros MD, [facility] - Urology Compassionate Specialist Care for the Genitourinary System Coding Level of Care Code New Pt Level 3 (43923) Diagnoses Microscopic hematuria R31.29
== END 2024-09-24 11:55 | disposition home or self-care (01) ==
LOC: HO.HUSH 11:22
PROVIDERS: PCP Internal Medicine; Visit Provider Urology
DX: R31.29 Other microscopic hematuria (principal); Z13.9 Encounter for screening, unspecified
CPT/HCPCS: 99203

== ENCOUNTER → 2024-09-24 11:21 | Outpatient (BNVA) | payer OTHER, SELFPAY | PROVIDERS: PCP Internal Medicine; Visit Provider Urology | DX: R31.29 Other microscopic hematuria (principal) | CPT/HCPCS: 81003 ==

== ENCOUNTER 2024-10-16 15:38 | Outpatient (REF) | payer OTHER, SELFPAY | END 2024-10-16 15:39 | disposition home or self-care (01) | LOC: HO.LNP 15:38 | PROVIDERS: PCP Internal Medicine; Visit Provider Physician Assistant Medical | DX: R82.998 Other abnormal findings in urine (principal); Z13.89 Encounter for screening for other disorder | CPT/HCPCS: 81003; 87086 ==

== ENCOUNTER 2024-10-16 15:38 | Outpatient (AMB) | payer OTHER, SELFPAY ==
--- NOTE | 2024-10-16 15:40 | AM.OFFWIN_ITS ---
Intake Vital Signs 10/16/24 15:41 Height 6 ft 3 in Weight 211 lb BMI 26.4 BP 128/80 Blood Pressure Location Rt brachial Position Sitting Pulse 60 Pulse Source Pulse Oximeter Temp 98.2 F Temp Source Oral Pulse Oximetry (%) 100 Oxygen Delivery Method Room Air Intake Visit Reasons: EP urine issues Intake Note: presents with dark and foamy urine, no pain with urinating, occasional pain to lower back Patient Tobacco Use Status: Current someday Tobacco user Allergies ciprofloxacin (From Cipro) Allergy (Intermediate, Verified 10/16/24 15:43) swollen lips lisinopril Allergy (Intermediate, Uncoded 08/09/24 00:08) swollen lips Do you need a note to return to daycare/school/sports/work: No HPI HPI Comments History of Present Illness Details History of Present Illness - The patient is a 44-year-old male pres enting with dark and foamy urine. - The patient reports dark and foamy uri ne but is unsure of the onset. - There is no associated pain or burning during urination. - The patient experiences occasional radhika k pain but denies any history of kidney stones. - A history of hematuria led to a referr al to a urologist, where a urinary tract infection was diagnosed two months ago and negative STD screen. - The patient has not undergone recent b lood work for kidney function and is not on any kidney-specific medications. - No recent antibiotic use except for a topical application. - He denies fever, chills, abd pain, lena sea, vomiting, skin changes, STC con cern, or discharge. Physical Exam General: Cooperative, healthy appearing, comfortable, no acute distress and well developed Orientation: Patient oriented x3 Limitations: No limitations Head: Normal to inspection Respiratory: Normal respiratory effort and able to speak in complete sentences. Clear to auscultation bilaterally. No w/r/r noted. Cardiovascular: Regular rate and rhythm. Normal S1 and S2. No m/r/g noted. GI: Normal to inspection. Soft to palpation and nontender. No guarding noted or rebound tenderness. No CVA tenderness noted. Skin: No rashes or lesions noted Patient was informed and verbally consented to the use of an ambient scribe for clinic note documentation during this visit. [facility] Medical History Immunity status testing Excessive drinking alcohol Smoking Other and unspecified hyperlipidemia (~03/2020) Atherosclerotic cardiovascular disease ST elevation myocardial infarction (STEMI) of inferior wall Patient denies medical problems Surgical History History of removal of cyst History of heart artery stent (~05/2020) Family History Father Heart disease Mother Cancer Other Substance use disorder Social History Household Members: None Housing: Apartment Do you presently have visiting nurse or other home services: No Alcohol intake: current Alcohol intake frequency: a few times a month Alcohol type: other Patient Tobacco Use Status: Current someday Tobacco user Tobacco use type: Cigarette e-Cigarette/Vaping Use: Currently Using Substance Use Type: Marijuana service: No Current occupational status: employed 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 Cognitive needs: No Hearing needs: No Vision needs: No Review of Systems Const All systems reviewed & are unremarkable except as noted in HPI and below Physical Exam Vital Signs: Last Vital Signs Temp 98.2 F 10/16/24 15:41 Pulse 60 10/16/24 15:41 BP 128/80 10/16/24 15:41 Pulse Ox 100 10/16/24 15:41 Oxygen Delivery Method Room Air 10/16/24 15:41 BMI result Body Mass Index 26.4 Assessment & Plan Assessment & Plan (1) Dark brown-colored urine: Code(s): R82.998 - Other abnormal findings in urine Plan Most likely UTI vs stone vs kidney injury vs dehydration UA was negative Plan - will order a urine culture - encourage him to drink lots of fluids - will order labs - needs to f/u with urologist - also f/u with PCP Orders: Orders Urine Culture Today N39.0 - Urinary tract infection, site not specified AMB Urinalysis Automated Today Z13.9 - Encounter for screening, unspecified Comprehensive Met. Panel Today R82.998 - Other abnormal findings in urine Coding Level of Care Code Est Pt Level 3 (89711) Diagnoses Dark brown-colored urine R82.998
[2024-10-16 15:41] VITALS: BP 128/80; PULSE 60; TEMP 36.8; O2SAT 100; BMI 26.4
== END 2024-10-16 16:14 | disposition home or self-care (01) ==
PROVIDERS: PCP Internal Medicine; Visit Provider Physician Assistant Medical
DX: R82.998 Other abnormal findings in urine (principal); Z13.9 Encounter for screening, unspecified

== ENCOUNTER 2024-10-17 15:33 | Outpatient (REF) | payer OTHER, SELFPAY ==
[2024-10-17 16:26] LABS: Alanine Aminotransferase 71 U/L (0-40); Albumin Level 5.0 g/dL (3.5-5.0); Alkaline Phosphatase 101 U/L (39-117); Anion Gap 14 (12-20); Aspartate Amino Transferase 63 U/L (5-37); Blood Urea Nitrogen 10 mg/dL (9-16); Calcium 9.3 mg/dL (8.4-10.2); Carbon Dioxide 28 mmol/L (22-29); Chloride 107 mmol/L (96-108); Estimated Glomerular Filt Rate > 60; Potassium 3.7 mmol/L (3.3-5.1); Sodium 145 mmol/L (135-145); Total Protein 8.0 g/dL (6.5-8.0)
== END 2024-10-17 15:34 | disposition home or self-care (01) ==
LOC: HO.LAB 15:33
PROVIDERS: PCP Internal Medicine; Visit Provider Physician Assistant Medical
DX: R82.998 Other abnormal findings in urine (principal); N39.0 Urinary tract infection, site not specified
CPT/HCPCS: 36415; 80053; 87086

== ENCOUNTER 2024-11-05 11:37 | Outpatient (AMB) | payer OTHER, SELFPAY ==
[2024-11-05 11:44] VITALS: BP 160/80; PULSE 80; O2SAT 100; BMI 25.7
--- NOTE | 2024-11-05 11:44 | MHC.PC.OV ---
Vital Signs 11/05/24 11:44 Height 6 ft 3 in Weight 206 lb BMI 25.7 BP 160/80 H Blood Pressure Location Lt brachial Position Sitting Pulse 80 Pulse Source Pulse Oximeter Pulse Oximetry (%) 100 Oxygen Delivery Method Room Air Intake Visit Reasons: urologist referral Allergies ciprofloxacin (From Cipro) Allergy (Intermediate, Verified 11/05/24 11:44) swollen lips lisinopril Allergy (Intermediate, Uncoded 08/09/24 00:08) swollen lips Medication List - Last Reconciled 11/05/24 by Ben Simon MD aspirin (Adult Aspirin Regimen) 81 mg PO DAILY atorvastatin 80 mg PO DAILY epinephrine (EpiPen 2-Aurelio) 0.3 mg (0.3 mL) IM Q10M PRN loratadine 10 mg PO DAILY metoprolol succinate ER 25 mg PO DAILY nitroglycerin 0.4 mg sublingual Q5M PRN 30 days triamcinolone acetonide 0.5% 1 appl topical BID PRN valacyclovir 500 mg PO DAILY Tobacco use date assessed: 04/03/24 Dental Screening Dental Screen Date: 04/03/24 HPI urologist referral HPI Details History The patient is a 44-year-old male presenting with foamy and dark urine, and seeking a colonoscopy. Foamy and Dark Urine: - The patient reports noticing foamy urine and a dark color to his urine. - No significant changes were mentioned since October 17 lab tests, which indicated normal kidney function but elevated liver enzymes. - The patient has no pain or discomfort when the abdominal area is palpated. Colonoscopy Screening: - The patient expresses a desire for scheduling a colonoscopy, as he is due for one at age 44. Medical History: - Elevated liver enzymes observed in recent lab tests (no previous occurrence reported in February). Medications: - Atorvastatin (prescribed by Dr. Joy, currently recommended to be stopped due to elevated liver enzymes). - metoprolol 25 mg but has not seen dev technical mgr in a while, refill sent Problem List - Elevated liver enzymes - Dark urine - Foamy urine - Requirement for colonoscopy Patient Instructions - Stop taking Atorvastatin until further investigation of liver enzymes. - Schedule and attend an ultrasound of the liver as recommended. - Obtain ordered blood tests, including liver function tests and possibly a hepatitis panel. - An appointment with a water team leader will be scheduled; await their call for details. - Follow up with Dr. Joy regarding medications affected by findings. - No new appointments need to be scheduled until after lab results. Follow-up after the labs, refrain from drinking alcohol Review of Systemsg. General: No fever no chills neurological: No headaches no dizziness ear nose throat: No sore throat no hearing difficulty no ear pain cardiovascular: No syncope, no chest pain, no palpitations gastrointestinal: No nausea vomiting or diarrhea endocrine: No polyuria polydipsia no heat intolerance genitourinary: No dysuria skin: No new complaints Physical Exam general: No acute distress HEENT: No acute findings neck: Supple respiratory system: Able to talk in full sentences, no audible wheeze no stridor cardiovascular: S1-S2 RRR gastrointestinal: No pain extremities: No new findings ME[employer] SE[employer] MANAGER: Alert awake oriented x3 motor sensory intact skin: Normal turgor [facility] Medical History Immunity status testing Excessive drinking alcohol Smoking Other and unspecified hyperlipidemia (~03/2020) Atherosclerotic cardiovascular disease ST elevation myocardial infarction (STEMI) of inferior wall Patient denies medical problems Surgical History History of removal of cyst History of heart artery stent (~05/2020) Family History Father Heart disease Mother Cancer Other Substance use disorder Social History Household Members: None Housing: Apartment Do you presently have visiting nurse or other home services: No Alcohol intake: current Alcohol intake frequency: a few times a month Alcohol type: other Patient Tobacco Use Status: Current someday Tobacco user Tobacco use type: Cigarette e-Cigarette/Vaping Use: Currently Using Substance Use Type: Marijuana service: No Current occupational status: employed 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 1. Little interest or pleasure in doing things: not at all 2. Feeling down, depressed, or hopeless: not at all 3. Trouble falling or staying asleep, or sleeping too much: not at all 4. Feeling tired or having little energy: not at all 5. Poor appetite or overeating: not at all 6. Feeling bad about yourself - or that you are a failure or have let yourself or your family down: not at all 7. Trouble concentrating on things, such as reading the newspaper or watching television: not at all 8. Moving or speaking so slowly that other people could have noticed. Or the opposite - being so fidgety or restless that you have been moving around a lot more than usual: not at all 9. Thoughts that you would be better off or of hurting yourself in some way: not at all Total score: 0 Depression Screening Interpretation: Negative Depression Screening Done: Yes 56049 - PHQ-9 Billing: Yes Source: Developed by Drs. Valentino Holcomb, Sharon Hurley, Evan Koenig and colleagues, with an educational olayinka from [employer]. Thrive Questionnaire Date Thrive assessed: 08/09/24 I am a: Patient What is your living situation today?: I have a steady place to live Within the past 12 months, did the food you bought not last and you didn't have the money to get more?: Never true Within the past 12 months, did you worry whether your food would run out before you got money to buy more?: Never true Do you have trouble paying for medicines?: No Do you have trouble getting transportation to medical appointments?: No Do you have trouble paying your heating and electricity bill?: No Do you have trouble taking care of your child, family member or friend?: No Do you have trouble with day-to-day activities such as bathing, preparing meals, shopping, managing finances, etc.?: No Are you currently unemployed and looking for a job?: Yes Are you interested in more education?: No Please select the resources that you would like help with: None Currently or been in a relationship where the following occur: No concerns reported THRIVE Score: 0 AUDIT C Alcohol Use Questionnaire (AUDIT-C) 1. How often do you have a drink containing alcohol?: 4 or more times a week 2. How many drinks containing alcohol do you have on a typical day when you are drinking?: 1 or 2 3. How often do you have six or more drinks on one occasion?: Weekly Total Score: 7 Score Reviewed/Action Taken: Yes ANAID-7 AMB Questionnaire ANAID-7 Date ANAID - 7 assessed: 11/05/24 Feeling nervous, anxious, or on edge: 0 = Not at all Not being able to stop or control worryin = Not at all Worrying too much about different things: 0 = Not at all Trouble relaxin = Not at all Being so restless that it is hard to sit still: 0 = Not at all Becoming easily annoyed or irritable: 0 = Not at all Feeling afraid as if something awful might happen: 0 = Not at all Total ANAID-7 score (0-4 normal; 5-9 mild; 10-14 moderate; 15-21 severe): 0 Source: Developed by Drs. Valentino Holcomb, Sharon uHrley, Evan Koenig and colleagues, with an educational olayinka from [employer]. ANAID-7 Assessment Billing ANAID-7 Assessment Tool: ANAID-7 Assessment 71718 Physical exam (Primary Care) Vital Signs: Last Vital Signs Pulse 80 11/05/24 11:44 BP 160/80 H 11/05/24 11:44 Pulse Ox 100 11/05/24 11:44 Oxygen Delivery Method Room Air 11/05/24 11:44 BMI result Body Mass Index 25.7 Tobacco/Smoking Status: Tobacco use Status Tobacco use date assessed 04/03/24 11/05/24 11:47 Patient Tobacco Use Status Current someday Tobacco 11/05/24 11:47 Tobacco use type Cigarette 11/05/24 11:47 e-Cigarette/Vaping Use Currently Using 11/05/24 11:47 PHQ-9: PHQ-9 Score PHQ-9: Total score 0 11/05/24 14:31 Depression Screening Interpretation: Negative Thrive Assessment: Date of Thrive Assessment Date Thrive assessed 08/09/24 11/05/24 11:47 Currently or been in a relationship where the following occur: No concerns reported Coding Level of Care Code Est Pt Level 5 (18419) Diagnoses LFT elevation R79.89 Dark urine R82.998 Elevated blood pressure reading R03.0 Atherosclerotic cardiovascular disease I25.10 Lipid disorder E78.9 Excessive drinking alcohol F10.10 Additional Codes ANAID-7 Assessment Billing - ANAID-7 Assessment Tool: ANAID-7 Assessment 83743 ([id number]) PHQ-9 - 34063 - PHQ-9 Billing: Yes ([id number]) Time Spent (min) 40 Comment Reviewing cardiology notes/chart/labs/zpio-gk-tooq/coordination of care Assessment & Plan Assessment & Plan (1) LFT elevation: Code(s): R79.89 - Other specified abnormal findings of blood chemistry Category: Medical (2) Dark urine: Code(s): R82.998 - Other abnormal findings in urine Category: Medical (3) Elevated blood pressure reading: Code(s): R03.0 - Elevated blood-pressure reading, without diagnosis of hypertension Category: Medical (4) Atherosclerotic cardiovascular disease: Code(s): I25.10 - Atherosclerotic heart disease of [place] coronary artery without angina pectoris Category: Medical (5) Lipid disorder: Code(s): E78.9 - Disorder of lipoprotein metabolism, unspecified Category: Medical (6) Excessive drinking alcohol: Code(s): F10.10 - Alcohol abuse, uncomplicated Category: Social Hx Plan History The patient is a 44-year-old male presenting with foamy and dark urine, and seeking a colonoscopy. Foamy and Dark Urine: - The patient reports noticing foamy urine and a dark color to his urine. - No significant changes were mentioned since October 17 lab tests, which indicated normal kidney function but elevated liver enzymes. - The patient has no pain or discomfort when the abdominal area is palpated. Colonoscopy Screening: - The patient expresses a desire for scheduling a colonoscopy, as he is due for one at age 44. Medical History: - Elevated liver enzymes observed in recent lab tests (no previous occurrence reported in February). Medications: - Atorvastatin (prescribed by Dr. Joy, currently recommended to be stopped due to elevated liver enzymes). - metoprolol 25 mg but has not seen dev technical mgr in a while, refill sent Problem List - Elevated liver enzymes - Dark urine - Foamy urine - Requirement for colonoscopy - elevated blood pressure - excess alcohol use Patient Instructions - Stop taking Atorvastatin until further investigation of liver enzymes. - Schedule and attend an ultrasound of the liver as recommended. - Obtain ordered blood tests, including liver function tests and possibly a hepatitis panel. - An appointment with a water team leader will be scheduled; await their call for details. - Follow up with Dr. Joy regarding medications affected by findings. - No new appointments need to be scheduled until after lab results. Follow-up after the labs, refrain from drinking alcohol Orders: Orders Hepatitis A,B,C Profile Today R79.89 - Other specified abnormal findings of blood chemistry, R82.998 - Other abnormal findings in urine Liver Fibrosis Pnl Today R7.89 - Other specified abnormal findings of blood chemistry, R82.998 - Other abnormal findings in urine Alpha 1 Anti-trypsin Today R79.89 - Other specified abnormal findings of blood chemistry, R82.998 - Other abnormal findings in urine Venous Lead Today R79.89 - Other specified abnormal findings of blood chemistry, R82.998 - Other abnormal findings in urine Liver Panel Today R79.89 - Other specified abnormal findings of blood chemistry, R82.998 - Other abnormal findings in urine Ferritin Today R79.89 - Other specified abnormal findings of blood chemistry, R82.998 - Other abnormal findings in urine Ceruloplasmin Today R79.89 - Other specified abnormal findings of blood chemistry, R82.998 - Other abnormal findings in urine US abdomen limited Today R79.89 - Other specified abnormal findings of blood chemistry
== END 2024-11-05 14:29 | disposition home or self-care (01) ==
LOC: HO.HMCC 11:38
PROVIDERS: PCP Internal Medicine; Visit Provider Internal Medicine
DX: R82.998 Other abnormal findings in urine (principal); R79.89 Other specified abnormal findings of blood chemistry; R03.0 Elevated blood-pressure reading, without diagnosis of hypertension; I25.10 Atherosclerotic heart disease of native coronary artery without angina pectoris; E78.9 Disorder of lipoprotein metabolism, unspecified; F10.10 Alcohol abuse, uncomplicated

== ENCOUNTER → 2024-11-05 11:37 | Outpatient (BNVA) | payer OTHER, SELFPAY | PROVIDERS: PCP Internal Medicine; Visit Provider Internal Medicine | DX: R03.0 Elevated blood-pressure reading, without diagnosis of hypertension (principal); R79.89 Other specified abnormal findings of blood chemistry; R82.998 Other abnormal findings in urine; I25.10 Atherosclerotic heart disease of native coronary artery without angina pectoris; E78.9 Disorder of lipoprotein metabolism, unspecified; F10.10 Alcohol abuse, uncomplicated | CPT/HCPCS: 96127 ==

== ENCOUNTER 2024-11-06 06:32 | Outpatient (REF) | payer OTHER, SELFPAY ==
[2024-11-06 10:37] LABS: Alanine Aminotransferase 39 U/L (0-40); Albumin Level 4.8 g/dL (3.5-5.0); Alkaline Phosphatase 119 U/L (39-117); Aspartate Amino Transferase 45 U/L (5-37); Total Protein 8.0 g/dL (6.5-8.0)
[2024-11-06 10:38] LABS: HBS Num1 1.02 mIU/mL (0-7.99); HBc Num1 0.10 S/CO (0.00-0.79); HBsAGNum1 0.42 S/CO (0.00-0.99); Hepatitis A Antibody IgM 0.21 Index (0-0.79); Hepatitis B Surface Antigen Negative (Negative); ~HepC Num1 0.15 S/CO (0.00-0.79); ~Hepatitis A Antibody IgM Nonreactive (Nonreactive); ~Hepatitis B Surface Antibody NONREACTIVE (Nonreactive); ~Hepatitis C Antibody Nonreactive (Nonreactive)
[2024-11-06 10:40] LABS: Ferritin 214 ng/mL (20-250)
[2024-11-09 15:58] LABS: Venous Lead <1.0 mcg/dL (<3.5)
[2024-11-14 15:29] LABS: FIB-ALT 26 U/L (9-46); FIB-Alpha-2-Macroglobulin 152 mg/dL (106-279); FIB-Apolipoprotein A1 187 mg/dL (94-176); FIB-GGT 47 U/L (3-95); FIB-Haptoglobin 200 mg/dL (43-212); FIB-Total Bilirubin 0.7 mg/dL (0.2-1.2); Liver Fibrosis Score 0.10; Liver Fibrosis Stage F0; Nec Inflam Act Grade A0; Nec Inflam Act Score 0.09
== END 2024-11-06 06:33 | disposition home or self-care (01) ==
LOC: HO.HMGCLDS 06:32
PROVIDERS: PCP Internal Medicine; Visit Provider Internal Medicine
DX: Z11.59 Encounter for screening for other viral diseases (principal); R79.89 Other specified abnormal findings of blood chemistry; R82.998 Other abnormal findings in urine
CPT/HCPCS: 36415; 80076; 81596; 82103; 82390; 82728; 83655; 86704; 86706; 86709; 86803; 87340

== ENCOUNTER 2024-12-05 11:40 | Emergency (ER) | payer OTHER, SELFPAY ==
--- NOTE | 2024-12-05 | ECG_ITS ---
Test Reason : chest pain Blood Pressure : */* mmHG Vent. Rate : 80 BPM Atrial Rate : 80 BPM P-R Int : 148 ms QRS Dur : 92 ms QT Int : 408 ms P-R-T Axes : 68 -42 27 degrees QTcB Int : 470 ms Normal sinus rhythm Left axis deviation Minimal voltage criteria for LVH, may be normal variant ( Chadwick product ) Abnormal ECG When compared with ECG of 26-May-2020 14:34, Significant changes have occurred Referred By: Generic ED Physician Electronically Signed By: Dustin Dickson
[2024-12-05 11:48] VITALS: BP 135/83; PULSE 83; RESP 18; TEMP 36.6; O2SAT 98; BMI 26.0
[2024-12-05 12:01] LABS: MANUAL DIFF FLAG NO
[2024-12-05 12:04] LABS: Hematocrit 38.8 % (42.0-52.0); Hemoglobin 12.6 g/dl (14.0-18.0); Imm Gran Abs Auto 0.01 X10*3/uL (0.00-0.03); Imm Gran Pct Auto 0.2 % (0.0-0.4); Lymphocytes Absolute Auto 1.5 X10*3/uL (1.2-4.9); Mean Corpuscular HGB Conc 32.5 g/dl (31.0-36.0); Mean Corpuscular Hemoglobin 28.9 pg (27.0-33.0); Mean Corpuscular Volume 89.0 fL (80.0-98.0); NRBC Abs Auto 0.000 X10*3/uL (0.0-0.012); NRBC Pct Auto 0.0 /100WBC (0.0-0.2); Platelet Count 231 X10*3/uL (160-400); Red Blood Count 4.36 X10*6/uL (4.60-5.80); White Blood Count 4.8 X10*3/uL (4.8-10.8)
[2024-12-05 12:14] LABS: Anion Gap 13 (12-20); Blood Urea Nitrogen 10 mg/dL (9-16); Calcium 8.7 mg/dL (8.4-10.2); Carbon Dioxide 28 mmol/L (22-29); Chloride 109 mmol/L (96-108); Creatinine Clr Calc Pharmacy 112.5; Estimated Glomerular Filt Rate > 60; Potassium 3.7 mmol/L (3.3-5.1); Sodium 146 mmol/L (135-145)
[2024-12-05 12:28] LABS: Troponin-I High Sensitivity < 2.7 ng/L (<3.5-35.0)
--- NOTE | 2024-12-05 12:36 | ED.CHESTPAIN ---
HPI - Chest Pain General Chief Complaint: Chest Pain Stated Complaint: Chest pain, lightheaded Time Seen by Provider: 12/05/24 12:02 Source: patient Mode of arrival: ambulatory Limitations: no limitations History of Present Illness ED Provider: DR. Whalen HPI narrative: 44-year-old male came in for evaluation of left-sided chest pain while he was walking about 1 hour ago chest pain was associated with lightheadedness and dizziness described as intermittent toward the left chest wall no radiation, no other associated shortness of breath, no recent travel or prolonged immobilization, no lower extremity swelling or tenderness. Patient is concern because history of coronary artery disease required stent in the past. Related Data Home Medications ?Medication ?Instructions ?Recorded ?Confirmed atorvastatin 80 mg tablet 80 mg PO DAILY 08/09/24 11/05/24 triamcinolone acetonide 0.5 % 1 appl topical BID PRN Rash 08/09/24 11/05/24 topical ointment Previous Rx's ?Medication ?Instructions ?Recorded nitroglycerin 0.4 mg sublingual 0.4 mg sublingual Q5M PRN angina 07/14/21 tablet 30 days #60 tabs aspirin 81 mg tablet,delayed 81 mg PO DAILY #90 tabs 10/05/23 release (Adult Aspirin Regimen) valacyclovir 500 mg tablet 500 mg PO DAILY #90 tabs 08/07/24 epinephrine 0.3 mg/0.3 mL 0.3 mg (0.3 mL) IM Q10M PRN 08/10/24 injection, auto-injector (EpiPen anaphylaxis #2 ea 2-Aurelio) loratadine 10 mg tablet 10 mg PO DAILY #10 tabs 08/10/24 metoprolol succinate 25 mg 25 mg PO DAILY #90 tabs 11/05/24 tablet,extended release 24 hr Allergies Allergy/AdvReac Type Severity Reaction Status Date / Time ciprofloxacin (From Cipro) Allergy Intermediate swollen Verified 12/05/24 11:50 lips lisinopril Allergy Intermediate swollen Uncoded 08/09/24 00:08 lips Review of Systems Review of Systems: All other systems are reviewed and are negative Constitutional: Reports as per HPI and Reports no additional constitutional complaints Eyes: Reports as per HPI and Reports no additional eye complaints Reports system reviewed and no additional complaints, except as documented Cardiovascular: Reports as per HPI and Reports no additional cardiovascular complaints Respiratory: Reports as per HPI and Reports no additional respiratory complaints Gastrointestinal: Reports as per HPI and Reports no additional gastrointestinal complaints Genitourinary: Reports no additional female genitourinary complaints Musculoskeletal: Reports no additional musculoskeletal complaints Skin/Breast: Reports system reviewed and no additional complaints, except as docu Psychiatric: Reports no additional psychiatric complaints Endocrine: Reports no additional endocrine complaints Hematologic/Lymphatic: Reports no additional hematologic/lymphatic complaints Allergic/Immunologic: Reports no additional allergic/immunologic complaints Reports system reviewed and no additional complaints, except as documented and Reports Abnormal speech present [facility] Past Medical History Medical History Immunity status testing Excessive drinking alcohol Smoking Other and unspecified hyperlipidemia (~03/2020) Atherosclerotic cardiovascular disease ST elevation myocardial infarction (STEMI) of inferior wall Patient denies medical problems Surgical History History of removal of cyst History of heart artery stent (~05/2020) Family History Family History Father Heart disease Mother Cancer Other Substance use disorder Social History Social History Household Members: None Housing: Apartment Do you presently have visiting nurse or other home services: No Alcohol intake: current Alcohol intake frequency: a few times a month Alcohol type: other Patient Tobacco Use Status: Current someday Tobacco user Tobacco use type: Cigarette e-Cigarette/Vaping Use: Currently Using Substance Use Type: Marijuana Advance Directives: No Advance Directives Information Provided: No Do you have a plan to hurt others: No Plan service: No Current occupational status: employed 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 Blood pressure elevated. Heart rate normal. Respiratory rate normal. Temperature normal. Oxygen saturation normal. Appearance: Alert. Oriented X3. No acute distress. Head: Normal external exam. Normocephalic. Atraumatic. No You signs noted. No raccoon eyes noted Eyes: PERRLA. EOMI. Conjunctiva and sclera normal. Eyelids normal. ENT: TM's Normal. Pharynx normal. Uvula midline. Moist mucous membranes. No trismus noted. No drooling noted. No muffled voice noted. Neck: Normal inspection. Neck supple. FROM. No adenopathy. Thyroid Normal. No meningeal signs. No neck mass noted. CVS: Normal heart rate and rhythm. Heart sound normal. No murmurs noted. Pulses normal throughout. Respiratory: No respiratory distress. Painless inspiration. Breath sounds normal. No wheezes/rales/rhonchi noted. Chest nontender. No accessory muscle usage noted or decreased air movement noted. Abdomen: Soft and nontender. Bowel sounds normal in all 4 quadrants. No distention noted. No organomegaly noted. No visible injury noted. Back: No CVA tenderness. Full range of motion noted. Skin: Skin warm and dry. Normal skin color. Normal skin turgor. No rashes/lesions/lacerations noted. Extremities: No lower extremity edema. Extremities exhibit normal range of motion. Extremities nontender. Neuro: Oriented X 3. Cranial nerve exam: II-XII are grossly intact No motor deficit. No sensory deficit. Reflexes normal. Course Reevaluation(s) Reevaluation #1: Chest pain, in the patient with CAD and history of stent placement. Patient currently is asymptomatic, EKG not suggesting ACS, negative troponin x2, no risk for PE with negative D-dimer. Time: 14:42 Medical Decision Making Differential Diagnosis Differential Diagnoses: The differential diagnosis associated with the presentation includes (ACS, pneumonia, pneumothorax, pleural effusion, pulmonary embolism, electrolyte derangement, severe anemia, costochondritis, chest wall pain.) Admission/Observation Consideration of admission/observation: Escalation of care including admission/observation considered Lab Data MDM Lab Attestation statement: I reviewed the patient's lab results. 12/05/24 11:56 12/05/24 11:56 Labs: Lab Results 12/05/24 12/05/24 Range/Units 11:56 14:02 WBC 4.8 (4.8-10.8) X10*3/uL RBC 4.36 L (4.60-5.80) X10*6/uL Hgb 12.6 L (14.0-18.0) g/dl Hct 38.8 L (42.0-52.0) % MCV 89.0 (80.0-98.0) fL MCH 28.9 (27.0-33.0) pg MCHC 32.5 (31.0-36.0) g/dl RDW 14.6 (11.0-16.0) % Plt Count 231 D (160-400) X10*3/uL MPV 9.3 L (9.4-12.4) fL Immature Gran % (Auto) 0.2 (0.0-0.4) % Neut % (Auto) 49.8 (45-73) % Lymph % (Auto) 31.0 (20-40) % [place] % (Auto) 13.0 H (2-11) % Eos % (Auto) 5.0 H (0-4) % Baso % (Auto) 1.0 (0-2) % Lymph # (Auto) 1.5 (1.2-4.9) X10*3/uL [place] # (Auto) 0.6 (0.1-1.2) X10*3/uL Eos # (Auto) 0.2 (0.0-0.4) X10*3/uL Baso # (Auto) 0.1 (0.0-0.2) X10*3/uL Abs Immat Gran (auto) 0.01 (0.00-0.03) X10*3/uL Absolute Neuts (auto) 2.4 (2.0-8.3) x10*3/uL Absolute Nucleated RBC 0.000 (0.0-0.012) X10*3/uL Nucleated RBC % (auto) 0.0 (0.0-0.2) /100WBC D-Dimer High Sensitivty < 150 NG/ML Sodium 146 H (135-145) mmol/L Potassium 3.7 (3.3-5.1) mmol/L Chloride 109 H (96-108) mmol/L Carbon Dioxide 28 (22-29) mmol/L Anion Gap 13 (12-20) BUN 10 (9-16) mg/dL Creatinine 0.98 (0.5-1.4) mg/dL Estim Creat Clear Calc 112.5 Estimated GFR > 60 Random Glucose 91 (60-115) mg/dL Calcium 8.7 D (8.4-10.2) mg/dL Troponin I High Sens < 2.7 < 2.7 (<3.5-35.0) ng/L Discharge Plan Discharge Clinical Impression: Atypical chest pain Patient Disposition: Home, Self-Care Instructions: Chest Pain (ED) Prescriptions: No Action nitroglycerin 0.4 mg tablet, sublingual 0.4 mg sublingual Q5M PRN (Reason: angina) 30 Days Qty: 60 0RF Rx Instructions: Three doses max within 15 minutes aspirin [Adult Aspirin Regimen] 81 mg tablet,delayed release (DR/EC) 81 mg PO DAILY Qty: 90 3RF valacyclovir 500 mg tablet 500 mg PO DAILY Qty: 90 0RF metoprolol succinate 25 mg tablet extended release 24 hr 25 mg PO DAILY Qty: 90 0RF triamcinolone acetonide 0.5 % ointment 1 appl topical BID PRN (Reason: Rash) Rx Instructions: APPLY 2 GRAMS OF OINTMENT TOPICALLY TO AFFECTED AREAS ON BACK AND CHEST TWICE DAILY FOR 2 WEEKS, BREAK FOR 1 WEEK, THEN REPEAT NEEDED atorvastatin 80 mg tablet 80 mg PO DAILY loratadine 10 mg Tablet 10 mg PO DAILY Qty: 10 0RF epinephrine [EpiPen 2-Aurelio] 0.3 mg/0.3 mL auto-injector 0.3 mg IM Q10M PRN (Reason: anaphylaxis) Qty: 2 0RF Rx Instructions: for 2 doses Referrals: Ben Simon MD [Primary Care Provider, Internal Medicine] Print Language: Paraguayan
[2024-12-05 13:59] VITALS: BP 128/75; PULSE 79; RESP 18; O2SAT 99
--- NOTE | 2024-12-05 14:06 | PC.NURSE ---
Labs drawn and sent for analysis. Results pending.
[2024-12-05 14:20] LABS: D Dimer High Sensitivity < 150 NG/ML
[2024-12-05 14:26] LABS: Troponin-I High Sensitivity < 2.7 ng/L (<3.5-35.0)
[2024-12-05 14:58] VITALS: BP 128/75; PULSE 79; RESP 18; TEMP 36.6; O2SAT 99
== END 2024-12-05 14:58 | disposition home or self-care (01) ==
PROVIDERS: Emergency Provider Emergency Medicine; PCP Internal Medicine
DX: R07.89 Other chest pain (principal); R42 Dizziness and giddiness
CPT/HCPCS: 36415; 80048; 84484; 85025; 85379; 93005; 99284

== ENCOUNTER → 2024-12-05 11:45 | Outpatient (BNV) | payer OTHER, SELFPAY | PROVIDERS: Emergency Provider Emergency Medicine; PCP Internal Medicine; Visit Provider Internal Medicine Cardiovascular Disease | DX: R94.31 Abnormal electrocardiogram [ECG] [EKG] (principal); R07.89 Other chest pain | CPT/HCPCS: 93010 ==

== ENCOUNTER 2024-12-24 09:51 | Outpatient (REF) | payer OTHER, SELFPAY ==
--- NOTE | ~2024-12-24 | US_ITS ---
CLINICAL HISTORY: R79.89 - Other specified abnormal findings of blood chemistry US abdomen limited Comparison: None provided Findings: The pancreatic head and proximal body appear within normal limits. The remainder of the pancreas is obscured by overlying bowel gas. The liver is mildly enlarged in size with the right hepatic lobe measuring 18.4 cm in length. Hepatic echogenicity is within normal limits. No focal hepatic mass is identified. There is no intrahepatic bile duct dilatation. The common duct is 2 mm in diameter. The gallbladder is normal. There is no sonographic Gibson sign. The main portal vein is antegrade. The right kidney is 12.0 cm in length. IMPRESSION: 1. Mild hepatomegaly. This document has been electronically signed by: Laurence Carrero on 12/25/2024 09:53:22
== END 2024-12-24 09:52 | disposition home or self-care (01) ==
LOC: HO.HMGCX 09:51
PROVIDERS: PCP Internal Medicine; Visit Provider Internal Medicine
DX: R79.89 Other specified abnormal findings of blood chemistry (principal)
CPT/HCPCS: 76705

== ENCOUNTER → 2024-12-24 09:54 | Outpatient (BNV) | payer OTHER, SELFPAY | PROVIDERS: PCP Internal Medicine; Visit Provider Radiology Vascular & Interventional Radiology | DX: R16.0 Hepatomegaly, not elsewhere classified (principal) | CPT/HCPCS: 76705 ==

== ENCOUNTER 2025-03-03 07:06 | Outpatient (REF) | payer OTHER, SELFPAY ==
[2025-03-03 10:03] LABS: MANUAL DIFF FLAG NO
[2025-03-03 10:14] LABS: Hematocrit 42.4 % (42.0-52.0); Hemoglobin 13.2 g/dl (14.0-18.0); Imm Gran Abs Auto 0.02 X10*3/uL (0.00-0.03); Imm Gran Pct Auto 0.4 % (0.0-0.4); Lymphocytes Absolute Auto 1.7 X10*3/uL (1.2-4.9); Mean Corpuscular HGB Conc 31.1 g/dl (31.0-36.0); Mean Corpuscular Hemoglobin 28.4 pg (27.0-33.0); Mean Corpuscular Volume 91.2 fL (80.0-98.0); NRBC Abs Auto 0.000 X10*3/uL (0.0-0.012); NRBC Pct Auto 0.0 /100WBC (0.0-0.2); Platelet Count 251 X10*3/uL (160-400); Red Blood Count 4.65 X10*6/uL (4.60-5.80); White Blood Count 4.7 X10*3/uL (4.8-10.8)
[2025-03-03 10:22] LABS: INTERNATIONAL NORM RATIO 0.9 (0.9-1.1); Prothrombin Time 10.8 SEC (11.2-13.5)
[2025-03-03 10:37] LABS: Alanine Aminotransferase 30 U/L (0-40); Albumin Level 4.6 g/dL (3.5-5.0); Alkaline Phosphatase 98 U/L (39-117); Anion Gap 10 (12-20); Aspartate Amino Transferase 30 U/L (5-37); Blood Urea Nitrogen 14 mg/dL (9-16); Calcium 9.0 mg/dL (8.4-10.2); Carbon Dioxide 28 mmol/L (22-29); Chloride 107 mmol/L (96-108); Cholesterol 272 mg/dL (<200); Estimated Glomerular Filt Rate > 60; HDL Cholesterol 48 mg/dL (>40); Iron 58 mcg/dL (45-160); Percent Iron Saturation 21 % (15-50); Potassium 3.9 mmol/L (3.3-5.1); Sodium 141 mmol/L (135-145); Total Iron Binding Capacity 279 mcg/dL (228-428); Total Protein 7.6 g/dL (6.5-8.0); Triglycerides 83 mg/dL (<150); Unsaturated Iron Binding 221 ug/dL
[2025-03-03 10:58] LABS: Gamma Glutamyl Transpeptidase 47 U/L (11-51)
[2025-03-03 11:01] LABS: HBS Num1 0.50 mIU/mL (0-7.99); HBc Num1 0.09 S/CO (0.00-0.79); HBsAGNum1 0.32 S/CO (0.00-0.99); Hepatitis A Antibody IgM 0.17 Index (0-0.79); Hepatitis B Surface Antigen Negative (Negative); ~HepC Num1 0.13 S/CO (0.00-0.79); ~Hepatitis A Antibody IgM Nonreactive (Nonreactive); ~Hepatitis B Surface Antibody NONREACTIVE (Nonreactive); ~Hepatitis C Antibody Nonreactive (Nonreactive)
== END 2025-03-03 07:07 | disposition home or self-care (01) ==
LOC: HO.HMGCLDS 07:06
PROVIDERS: PCP Internal Medicine; Visit Provider Nurse Practitioner Adult Health
DX: K76.0 Fatty (change of) liver, not elsewhere classified (principal); R74.02 Elevation of levels of lactic acid dehydrogenase [LDH]
CPT/HCPCS: 36415; 80053; 80061; 81596; 82103; 82105; 82390; 82977; 83540; 85025; 85610; 86015; 86038; 86381; 86704; 86706; 86709; 86803; 87340